=== PATIENT | female | born 1975 | race Caucasian/White ===

== ENCOUNTER → 2023-05-18 16:51 | Outpatient (REF) | payer OTHER, SELFPAY | LOC: HWWDC 16:51 | PROVIDERS: ATTENDING PHYSICIAN Family Medicine | DX: Z12.31 Encounter for screening mammogram for malignant neoplasm of breast (principal) | CPT/HCPCS: 77063; 77067 ==

== ENCOUNTER → 2024-07-05 13:59 | Outpatient (REF) | payer OTHER, SELFPAY | LOC: HWWDC 13:59 | PROVIDERS: ATTENDING PHYSICIAN Advanced Practice Midwife; FAMILY PHYSICIAN Family Medicine | DX: Z12.31 Encounter for screening mammogram for malignant neoplasm of breast (principal) | CPT/HCPCS: 77063; 77067 ==

== ENCOUNTER 2024-07-13 20:44 | Inpatient (IN) | payer OTHER, SELFPAY ==
[2024-07-13] VITALS (10 sets, daily range): BP systolic 90–144; BP diastolic 58–77; BMI 25.5; BMI 26.0
--- NOTE | 2024-07-13 17:27 | ED.GENMED ---
History of Present Illness
General
Chief Complaint: Flank Pain
Source: patient
Time Seen by Provider: 07/13/24 17:16
History of Present Illness
History of Present Illness:
This patient is a 49-year-old female presents emergency department with complaints of left-sided flank pain radiating to the left upper quadrant that began at approximately 4 AM this morning. The pain has been relatively constant since that time,
seems to get better if she tries to walk around, but otherwise she states she feels like she cannot get comfortable. The symptoms are very similar to when she had a kidney stone in the past. She went to an urgent care at approximately noon today,
and was told that she had blood in her urine as well as an elevated white blood cell count. She was referred to the emergency department for further evaluation. Of note, the patient took leftover Zofran and Flomax at home, as well as Tylenol.
While at the urgent care she received a dose of Toradol. She still reports pain here in the emergency department but is no longer nauseous. She denies vomiting, dysuria, urgency, frequency, retention, right-sided pain, chest pain, dyspnea, or
other complaints. When asked about fever she states that she had a temp of 100.7 last night but no fever during the day today
Past History
Past History
ED Past Medical History: Hyperthyroidism (Graves) and Other (Kidney stones, ADHD, hypertension)
ED Past Surgical History: Cholecystectomy, Urological (Lithotripsy) and Other (Thyroidectomy, breast augmentation, 'tummy tuck')
Social History
Tobacco: Non-smoker
Alcohol: Occasional
Drug: None
Living: alone
Employment: Employed
Phy Exam
Physical Exam
Physical Exam:
GENERAL: Alert , in no apparent distress
EYE: pupils equal and reactive
NECK: Supple, no significant adenopathy.
ENT: o/p clr, mmm.
CARDIAC: Regular rate and rhythm .
LUNGS: Clear breath sounds bilaterally, no acute respiratory distress, no wheezes/rales/rhonchi
ABDOMEN: Soft, without focal tenderness, no r/g, no cvat
NEUROLOGICAL: Alert and oriented, no focal neuro deficits
SKIN: Warm and dry, skin intact.
MUSCULOSKELETAL: No edema, well perfused.
PSYCH: Normal and appropriate interaction.
Course
Orders/Labs/Results
Orders:
Orders
07/13/24 Dinner
Regular
07/13/24 17:26
CT Abd/pel Without Iv Or Oral Urgent
Comment:
Reason For Exam: L flank pain, hx stone
0.9% Sodium Chloride 1000 ml [Nss] 1,000 ml IV BOLUS
Morphine Sulfate 4 mg IV NOW STA
07/13/24 17:50
Complete Blood Count/No Diff Urgent
Comprehensive Metabolic Panel Urgent
Blood Culture Q30M
JANAE Source: Blood/Venous
Specimen Description:
07/13/24 17:51
Lactic Acid Q4H
Comment: CANCEL 2nd LACTIC ACID IF 1st LACTIC ACID IS LESS THAN 2
Urinalysis Reflex To Culture Urgent
Date Specimen was Collected: 07/13/24
Time Specimen was Collected: 17:34
Urine Microscopic Reflex Cult Urgent
Urine Culture Urgent
JANAE Source: U
Specimen Description:
Date Specimen was Collected: 07/13/24
Time Specimen was Collected: 17:34
07/13/24 18:39
Cefepime HCl [Maxipime] 2,000 mg IV NOW STA
07/13/24 18:41
0.9% Sodium Chloride 250 ml [Nss] 250 ml IV BOLUS
0.9% Sodium Chloride 500 ml [Nss] 500 ml IV BOLUS
07/13/24 18:58
Blood Culture Q30M
JANAE Source: Blood/Venous
Specimen Description:
07/13/24 19:29
Sterile Water [Sterile Water For Injection] 10 ml .[address] .[facility]
07/13/24 20:30
Admit/Transfer Patient As Directed
Co-Sign Provider:
Level of Care: Inpatient admission
Assign to:: IMU- Intermediate Care
Physician / Group: hospitalist
Diagnosis: sepsis
Reason for Hospitalization: sepsis, pyelonephritis
Expected length of stay greater than two midnights?: Yes
ELOS- Estimated Length of Stay in days: 2
I certify the patient meets the requirements for IP care: Yes
PRN Pain Medication Management As Directed
May give lesser potent ordered pain med per pt: Yes
preference::
Protocol:: Medication orders for pain may be administered in a
manner that supports deferring to patient preference
when the pt is:
- Requesting an ordered lesser potent pain medication.
Least to most potent pain medications are defined
as: acetaminophen < NSAID < tramadol < opioids
(morphine, oxycodone, hydromorphone).
- Requesting a lesser dose of the same medication IF
ORDERED.
- Requesting a less intrusive route of administration
if both routes are prescribed by the provider (PO <
IV).
07/13/24 20:31
Code Status As Directed
Resuscitation Status: Full Code
07/13/24 21:55
Acetaminophen [Tylenol] 650 mg PO Q4HPRN PRN
07/13/24 22:54
Acetaminophen [Tylenol/Feverall] 650 mg RECTAL Q4HPRN PRN
Lactated Ringers [Lr] 1,000 ml IV 125 mls/hr
Linaclotide [Linzess] 72 mcg PO DAILYPRN PRN
Melatonin 3 mg PO HSPRN PRN
Morphine Sulfate 2 mg IV Q6HPRN PRN
Ondansetron Injectable [Zofran] 4 mg IV Q6HPRN PRN
Oxycodone [Roxicodone] 5 mg PO Q4HPRN PRN
cycloSPORINE [Restasis 0.05% Ophthalmic Emulsion] 1 drops BOTH EYES Q12H
07/13/24 22:54
Activity As Directed
Activity Level: With Assistance
Intake/ Output As Directed
Frequency: Per unit guidelines
Vital Signs As Directed
Frequency: Per unit guidelines
Pulse Ox/cont/shift [RESP] Routine
Quantity: 1
Special Instructions: continuous pulse ox
DX Deep Vein Thrombosis Video Routine
07/14/24 00:00
Heparin 5,000 units SC Q8
07/14/24 00:30
Cefepime HCl [Maxipime] 1,000 mg IV Q6H
07/14/24 06:00
Complete Blood Count/No Diff IN AM
Comprehensive Metabolic Panel IN AM
07/14/24 08:00
Bupropion(24Hr)Extended Releas [WELLBUTRIN XL (24 hour extended release)] 300 mg PO DAILY
Levothyroxine [Synthroid] 150 mcg PO DAILY
Metoprolol Xl [Toprol Xl] 50 mg PO DAILY
dextroamphetamine sulfate 10 mg PO BID
Abnormal Lab Results
07/13/24 07/13/24
17:50 17:51
WBC 27.4 H 10^3/uL
(4.8-10.8)
RBC 4.14 L 10^6/uL
(4.20-5.40)
Hct 36.7 L %
(37.0-47.0)
MCH 31.6 H pg
(27.0-31.0)
Sodium 134 L mmol/L
(135-145)
Carbon Dioxide 21 L mmol/L
(22-30)
BUN 18 H mg/dl
(7-17)
Creatinine 1.3 H mg/dL
(0.6-1.0)
Glucose 119 H mg/dl
(70-99)
Urine Ketones 2+ A
(Negative)
Ur Occult Blood Reflex 4+ A
(Negative)
Urine Nitrite (Reflex) Positive A
(Negative)
Leukocyte Esterase Rfl 3+ A
(Negative)
Urine RBC 26-30 A /HPF
(0-2)
Urine WBC (Reflex) >100 A /HPF
(0-5)
Urine Bacteria (Reflex) Moderate A
(Negative)
Urine Albumin (Reflex) 3+ A
(Neg - Trace)
07/13/24 17:50
07/13/24 17:50
Vital Signs
Initial and Last Documented VS:
Initial Vital Signs
Temp Pulse Resp BP Pulse Ox
98.8 F 118 16 106/75 100
07/13/24 16:59 07/13/24 16:59 07/13/24 16:59 07/13/24 16:59 07/13/24 16:59
Last Documented Vital Signs
Temp Pulse Resp BP Pulse Ox
103.2 F H 131 26 106/69 97
07/13/24 21:52 07/13/24 22:30 07/13/24 22:00 07/13/24 22:30 07/13/24 22:30
*Critical Care Note
Total Time (30-74mins, 75-104mins- exclusive of procedures): 32
Update Note
Update Note:
Patient presents to the Emergency Department with __left flank and upper quadrant pain
Number and Complexity of Problems Addressed at the Encounter
� Chronic conditions affecting care:
� Acute Exacerbation and/or Progression of Chronic Illness:
� Differential Diagnosis includes: But not limited to kidney stone, pyelonephritis, muscle strain, diverticulitis, etc. etc. etc.
Amount and/or Complexity of Data to be Reviewed and Analyzed
� I performed an independent evaluation of and my interpretation is:
EKG:
CT:There is a large 2.2 cm nonobstructing stone in the superior pole of the left kidney. There is slight asymmetric stranding along the superior pole the left kidney which is nonspecific however can be seen with infection.
Additionally there is a small focus of gas within the superior pole of the left kidney which raises the possibility of emphysematous pyelonephritis. Recommend correlation with urinalysis.
There are additional nonobstructing stones in the inferior pole the left kidney measuring up to 3 mm. Punctate nonobstructing stone in the lower pole the right kidney.
Prior cholecystectomy.
Mild colonic stool burden.
Xrays:
Laboratory Studies:leukocytosis, renal insuff (cr 1.3), ua suggestive of infx
Other:There is a large 2.2 cm nonobstructing stone in the superior pole of the left kidney. There is slight asymmetric stranding along the superior pole the left kidney which is nonspecific however can be seen with infection.
Additionally there is a small focus of gas within the superior pole of the left kidney which raises the possibility of emphysematous pyelonephritis. Recommend correlation with urinalysis.
There are additional nonobstructing stones in the inferior pole the left kidney measuring up to 3 mm. Punctate nonobstructing stone in the lower pole the right kidney.
Prior cholecystectomy.
Mild colonic stool burden.
� Review of other/old records reveals:
� Clinical information was obtained by an independent historian:
� Prescriptions/Medications Considered but not given:
� Further testing considered but not performed:
Risk of Complications and/or Morbidity or Mortality of Patient Management
� Social determinants of health affecting care:
� Discussion with other providers (PCP, Hospitalists, Consultants, etc):
� Escalation of care including admission/observation vs risk of discharge considered: Patient states that she was given paperwork from her urgent care visit but is unable to access, she left it in the car of her brother who
brought her here. For this reason, we will check labs here.
7:27 PM I reassessed patient multiple times, she remains pain-free, smiling, pleasant. She is aware of her diagnosis and plan of care. CT has just been reported, concern regarding small amount of gas noted raising the possibility of emphysematous
pyelonephritis. She does not have an obstructing stone. Case discussed with Dr. Garzon from urology aware of her clinical presentation i.e. sepsis and I pasted CT report, asking if patient needs further intervention tonight. Patient will be
admitted to the hospitalist, suggest ICU.
response from Dr Garzon: 'No indication for ureteral stent or PCN tube as no obstruction is evident
And as no abscess is described, no role for IRad to place a drain
So medical tx for the sepsis'
ED Attending Note
-
Portions of this chart may have been created with voice recognition software.� Occasional wrong word or��sound alike� substitutions may have occurred due to the inherent limitations of voice recognition software.
Discharge Plan
Departure
Patient Disposition: Admit
Date of Disposition: 07/13/24
Time of Disposition: 19:35
Admit to: ICU
Presentation/result/management discussed w/ accepting MD/DO: Hospitalist
Condition: Fair
Discharge Problem:
Emphysematous pyelonephritis
Interventions
Interventions:
*Risk Screen - Suicide Last Done: 07/13/24 17:01
*General Assessment Last Done: 07/13/24 18:24
*Neglect/Abuse Screening Last Done: 07/13/24 17:01
*ED- Fall Risk Assessment Last Done: 07/13/24 18:24
GY-Apbwzq-Ppzbspticj Assessment Last Done: 07/13/24 18:00
ED-Female Genitourinary Assessment Last Done: 07/13/24 18:00
[2024-07-13] MEDS: MORPHINE SULFATE 4 MG IV (17:51)
[2024-07-13] MEDS: NSS 1000 IV (17:52)
[2024-07-13 18:11] LABS: Hematocrit 36.7 % (37.0-47.0); Hemoglobin 13.1 g/dL (12.0-16.0); Mean Corp Hgb Conc. 35.7 g/dL (33.0-37.0); Mean Corpuscular Hgb 31.6 pg (27.0-31.0); Mean Corpuscular Volume 88.6 fL (81.0-99.0); Mean Platelet Volume 9.5 fL (7.4-10.4); Platelet Count 243 10^3/uL (130-400); Red Blood Cell Count 4.14 10^6/uL (4.20-5.40); Red Cell Dist. Width 12.6 % (11.5-14.5); White Blood Cell Count 27.4 10^3/uL (4.8-10.8)
[2024-07-13 18:11] LABS: Urine Albumin 3+ (Neg - Trace); Urine Bilirubin Negative (Negative); Urine Character Cloudy (Clear); Urine Color Yellow; Urine Glucose Negative (Negative); Urine Ketone 2+ (Negative); Urine Leukocyte 3+ (Negative); Urine Nitrite Positive (Negative); Urine Occult Blood 4+ (Negative); Urine Urobilinogen Negative (Neg - 1+)
[2024-07-13 18:22] LABS: Lactic Acid 1.8 mmol/L (0.7-2.0)
[2024-07-13 18:23] LABS: Urine Bacteria Moderate (Negative); Urine Red Blood Cell 26-30 /HPF (0-2); Urine White Cell >100 /HPF (0-5)
[2024-07-13 18:24] LABS: ALT (SGPT) 20 U/L (0-35); AST (SGOT) 19 U/L (14-36); Albumin 4.1 g/dl (3.5-5.0); Alkaline Phosphatase 90 U/L (38-126); Blood Urea Nitrogen 18 mg/dl (7-17); Calcium 8.9 mg/dl (8.4-10.2); Carbon Dioxide 21 mmol/L (22-30); Chloride 102 mmol/L (98-107); Glucose 119 mg/dl (70-99); Sodium 134 mmol/L (135-145); Total Bilirubin 0.6 mg/dl (0.2-1.3)
[2024-07-13] MEDS: MAXIPIME 2000 MG IV (19:33)
[2024-07-13] MEDS: NSS 500 IV (19:35)
[2024-07-13] MEDS: NSS 250 IV (19:36)
--- NOTE | 2024-07-13 20:20 | HPS.HSE ---
Family Physician
-
Family Physician: Nicolas Caldera
Chief Complaint
-
Flank pain
History of Present Illness
Is a 49-year-old past medical history significant for Graves' disease status post thyroidectomy now on Synthroid, hypertension, nephrolithiasis status post lithotripsy in the past who presents to the emergency department with acute onset of
left-sided flank pain starting 1 night ago.
Patient reports that she woke up at around 4 AM with abrupt onset of flank pain. She had a fever to 100.7. She took some Tylenol. She does report that she did have urinary frequency and urgency but no dysuria. She was seen at urgent care and had
a UA and some blood work and was referred to the emergency department.
Patient has not had any nausea or vomiting or diarrhea. She reports chills and she did take a second dose of Tylenol prior to coming to the emergency department.
She reported that she last had a urinary tract infection several years ago. She has not been on any antibiotics for the last 20 years.
She denies any recent instrumentation.
In the emergency department she was afebrile with a temp of 98.8, blood pressure was 110/60 with a pulse of 110. Respiratory was 24.
He had a white count of 27.4 hemoglobin and platelets are normal. Electrolytes with stable blood creatinine was slightly elevated to 1.3 from a baseline of 1.0. UA was markedly positive with few plus numerous bacteria WBC leukocyte esterase and
nitrites.
CT of the abdomen and pelvis showing large 2.2 cm nonobstructing stone in the superior pole of the left kidney. There is slight asymmetric stranding along the superior pole the left kidney which is nonspecific however can be seen with infection.
Additionally there is a small focus of gas within the superior pole of the left kidney which raises the possibility of emphysematous pyelonephritis. There are additional nonobstructing stones in the inferior pole the left kidney measuring up to 3
mm. Punctate nonobstructing stone in the lower pole the right kidney.
Medical History
Past Medical History
Past Medical History: Reports HTN, Hypothyroidism and Other (Graves' disease status post thyroidectomy)
Past Surgical History: Reports Cholecystectomy and Other (Breast augmentation, abdominal liposuction)
Social History
Tobacco: Non-smoker
Alcohol: Occasional
Drug: None
Personal:
Living: With Family
Family History
Family History: Not pertinent
Allergies / Home Medications
Allergies reflects when Allergies were last updated in [employer].
Home Medications with original date entered in [facility]
Allergy/Medication List:
Allergies
Allergy/AdvReac Type Severity Reaction Status Date / Time
No Known Allergies Allergy Verified 09/16/20 11:02
Home Medications
levothyroxine 150 mcg tablet 150 mcg PO DAILY 09/09/17
cholecalciferol (vitamin D3) 25 mcg (1,000 unit) tablet 1,000 units PO HS 01/08/20
melatonin 3 mg tablet 3 mg PO HSPRN PRN sleep 01/08/20
bupropion HCl 150 mg 24 hr tablet, extended release 300 mg PO DAILY 07/13/24
cyclosporine 0.05 % eye drops in a dropperette 1 drp BOTH EYES Q12H 07/13/24
dextroamphetamine sulfate 10 mg capsule,extended release 10 mg PO BID 07/13/24
etonogestrel 0.12 mg-ethinyl estradiol 0.015 mg/24 hr vaginal ring (EluRyng) 1 vag ring vaginal Q4W 07/13/24
hydrochlorothiazide 12.5 mg tablet 12.5 mg PO DAILY 07/13/24
linaclotide 72 mcg capsule (Linzess) 72 mcg PO DAILYPRN PRN ibs 07/13/24
metoprolol succinate 50 mg tablet,extended release 24 hr 50 mg PO DAILY 07/13/24
ondansetron 8 mg disintegrating tablet 8 mg PO DAILYPRN PRN nausea 07/13/24
zolpidem 10 mg tablet 10 mg PO HSPRN PRN sleep 07/13/24
Review of Systems
-
History Source: Patient
Constitutional: Reports Fever
EENT: Reports No Symptoms
Respiratory: Reports No Symptoms
Cardiac: Reports No Symptoms
Abdomen/GI: Reports No Symptoms
: Reports Flank Pain
Musculoskeletal: Reports No Symptoms
Skin: Reports No Symptoms
Neurological: Reports No Symptoms
Endocrine: Reports No Symptoms
Hematologic/Lymphatic: Reports No Symptoms
Psych: Reports No Symptoms
Physical Exam
Vital Signs
Vital Signs
Temp Pulse Resp BP Pulse Ox
98.8 F 107 24 113/60 95
07/13/24 16:59 07/13/24 19:30 07/13/24 19:30 07/13/24 19:00 07/13/24 19:05
Physical Exam
General: Well Developed, Well Nourished, Comfortable and Conversant
HEENT: NormoCephalic, Anicteric, Moist mucous membranes and Atraumatic
Respiratory: Clear
Cardiac: S1/S2 and Tachycardia
Breast: Deferred by me
GI: Soft, Non Tender, Non Distended and Normal Bowel Sounds
Rectal: Deferred by Provider
Genito-urinary: Deferred by me
Musculoskeletal: No Clubbing, No Cyanosis and No Edema
Skin: Warm
Neuro: AO x 3 and Nonfocal/grossly intact
Hematologic/Lymphatic: No Lymphadenopathy
Psych: Calm
Laboratory Results
-
07/13/24 17:50
07/13/24 17:50
Laboratory Results
Lactic Acid 1.8 mmol/L (0.7-2.0) 07/13/24 17:51
Total Bilirubin 0.6 mg/dl (0.2-1.3) 07/13/24 17:50
AST 19 U/L (14-36) 07/13/24 17:50
ALT 20 U/L (0-35) 07/13/24 17:50
Alkaline Phosphatase 90 U/L (38-126) 07/13/24 17:50
Data Reviewed
-
CT Scan: Report Reviewed by me
Lab Data: Labs Reviewed by me
Old Records: Reviewed
Impression/Plan
-
IMPRESSION:
51-year-old female with past medical history of hypothyroid, nephrolithiasis, presents to the emergency department with left-sided flank pain and found to have complicated pyelonephritis. Patient has left-sided nonobstructing large 2 cm stone.
There is no abscess. UA is markedly positive. He has severe peripheral leukocytosis and has fevers at home. She is tachycardic here. Meets sepsis criteria. The CT scan of the abdomen pelvis in addition shows a small focus of gas within the
superior pole of the left kidney which raises the possibility of emphysematous pyelonephritis. Urology was contacted. There is no obstruction so no acute urological intervention recommended.
PLAN:
1. Pyelonephritis - Sepsis without shock. H/O kidney stones. Currently non-obstructing kidney stones in the left kidney. No abscess. ? small focus of gas in the superior pole of the left kidney
- admit to IMU for sepsis
- blood and urine cultures sent
- no recent abx, however given severity of presentation and presence of stone will cover for proteus with Cefepime for now pending cultures
- pain control and antiemetics
- serial examinations
- continue IV LR
2. Hypothyroid - stable
- continue synthroid 150 mcg
3. Hypertension
- will hold hctz for now
- continue metoprolol with hold parameters if stable in am
DVT PPX - heparin sq for now
Code status - Full Code
[2024-07-13] MEDS: TYLENOL 650 MG PO (21:58)
[2024-07-13] MEDS: LR 1000 IV (23:16)
[2024-07-13] MEDS: HEPARIN 5000 UNITS SC (23:47)
[2024-07-13] MEDS: ROXICODONE 5 MG PO (23:48)
[2024-07-13] MEDS: RESTASIS 0.05% OPHTHALMIC EMULSION 1 DROPS BOTH EYES (23:52)
[2024-07-14] VITALS (21 sets, daily range): BP systolic 82–104; BP diastolic 53–78
--- NOTE | 2024-07-14 01:39 | PTCARENOTE ---
Rec'd pt from ED. Pt able to ambulate from stretcher to bed with minimal assistance. IVF hanging per MD orders. Pt c/o pain in L flank. Oriented to room. Call issa within reach.
[2024-07-14] MEDS: STERILE WATER FOR INJECTION 10 ML IV ×2 (01:54→07:29)
[2024-07-14] MEDS: MAXIPIME 1000 MG IV ×2 (01:55→07:29)
[2024-07-14] MEDS: LR 500 IV (02:36)
--- NOTE | 2024-07-14 04:16 | PTCARENOTE ---
Pt hypotensive, asymptomatic. [employer] notified via TT, 500ml bolus given per JUN.
[2024-07-14] MEDS: SYNTHROID 150 MCG PO (05:22)
[2024-07-14] MEDS: ROXICODONE 5 MG PO ×3 (07:26→20:10)
[2024-07-14] MEDS: RESTASIS 0.05% OPHTHALMIC EMULSION 1 DROPS BOTH EYES ×2 (07:28→20:10)
[2024-07-14] MEDS: WELLBUTRIN XL (24 hour extended release) 300 MG PO (07:28)
[2024-07-14] MEDS: HEPARIN 5000 UNITS SC ×2 (07:35→20:10)
[2024-07-14] MEDS: LR 1000 IV ×3 (07:39→23:11)
--- NOTE | 2024-07-14 09:36 | CM ---
CM met with pt bedside
Pt resides alone in a 2SH with 2 PRESTON, full flight to 2nd floor
Pt is indep with her ADLs, denies use of DMEs
Denies financial insecurities
PCP- Nicolas Caldera
Rx- Franklin Barba
Discharge Disposition- anticipate, home no needs
--- NOTE | 2024-07-14 09:36 | W.PN.HOSP.TC ---
Today's Communication/Plan
-
await cultures
cont IVF and ABX
consider urology consult in AM
transfer out of IMU
Assessment / Plan
Assessment / Plan
pt is a 49 year old female
sepsis (POA) without shock--due to left kidney Pyelonephritis-- H/O kidney stones--non-obstructing kidney stones in the left kidney--No abscess--small focus of gas in the superior pole of the left kidney--cont cefepime--follow cultures--consider
urology consult in AM
Hypothyroid- continue synthroid 150 mcg
Essential Hypertension--hold HCTZ--continue metoprolol with hold parameters
DVT Proph -- SC heparin
Code status - Full Code
ok to transfer out of IMU
Anticipated Discharge: 24 - 48 hours
Subjective/Interval History
-
Date of Service: July 14, 2024
pt doing OK
Objective Data
-
Labs:
Laboratory Results
07/14/24
06:00
WBC Pending
Hgb Pending
Hct Pending
Plt Count Pending
Sodium Pending
Potassium Pending
Chloride Pending
Carbon Dioxide Pending
BUN Pending
Creatinine Pending
Glucose Pending
Calcium Pending
Total Bilirubin Pending
AST Pending
ALT Pending
Alkaline Phosphatase Pending
Vital Signs:
max temp for 24 hours
07/13/24
21:52
Temp 103.2 F H
Vital Signs
Temp Pulse Resp BP Pulse Ox
99.1 F 104 22 94/60 98
07/14/24 03:00 07/14/24 06:00 07/14/24 06:00 07/14/24 06:00 07/14/24 06:00
Review of Systems
-
All other systems: Reviewed and negative
Physical Exam
-
General: Well Developed, Well Nourished and No Apparent Distress
HEENT: Normocephalic and Atraumatic
Respiratory: Clear to Auscultation; Negative Wheezes or Rhonchi
Cardiac: Regular Rhythm and S1/S2; Negative Murmur
GI: Soft, Nontender, Nondistended and Normal Bowel Sounds
Genito-urinary: No Costovertebral Tender
Musculoskeletal: No Clubbing, No Cyanosis and No Edema
Skin: Warm
Neuro: Awake
--- NOTE | 2024-07-14 10:44 | CON.ID ---
Consultation
-
Date/Time Consultation Requested: 07/13/24 23:04
Date/Time Consultation Performed: 07/14/24 10:44
Requesting Provider: Dr Kearney
Performing Provider: Dr Mao
Reason for Consultation: sepsis, pyelonephritis
Chief Complaint / Past History
Chief Complaint
Flank pain
History of Present Illness
Ms Van 49 year old female history notable for Graves disease and previous renal stone, who presented here yesterday for acute onset of L flank pain 07/12 which awoke her from sleep, also fever 100.7 and chills and urinary frequency. She was
seen at urgent care who referred her to our ER. No nausea, vomiting or diarrhea.
In the emergency department she was afebrile with a temp of 98.8, blood pressure was 110/60 with a pulse of 110. Respiratory rate was 24. WBC initially 27, hgb 13, plt 243, cr 1.3, lactic acid 1.8, lfts wnl, UA >100 wbc/hpf and moderate bacteria,
'07/13 CT a/p without contrast: 2.2 cm nonobstructing stone in the superior pole of the left kidney. There is slight asymmetric stranding along the superior pole the left kidney which is nonspecific however can be seen with infection. Additionally
there is a small focus of gas within the superior pole of the left kidney which raises the possibility of emphysematous pyelonephritis' vs prior instrumentation such as her L RGP done 2019.
Past History
Additional Past Medical History:
HTN, Hypothyroidism and Other (Graves' disease status post thyroidectomy)
Additional Past Surgical History:
Cholecystectomy and Other (Breast augmentation, abdominal liposuction)
Allergy History:
No Known Allergies Allergy (Verified 09/16/20 11:02)
Medications Reviewed: Yes
Social History
Tobacco: Non-Smoker
Alcohol: Occasional
Drug: None
Family History
Family History: Not Pertinent
Review of Systems
Review of Systems
General: Fever and Chills
All systems: All other systems were reviewed and were negative
Vital Signs
Temp Pulse Resp BP Pulse Ox
99.1 F 114 21 104/60 97
07/14/24 07:45 07/14/24 09:00 07/14/24 09:00 07/14/24 09:00 07/14/24 09:00
Physical Exam
Physical Exam
Constitutional: No Acute Distress
Cardiovascular: Regular Rate and S1/S2; Negative Murmur or Rub
Pulmonary: Clear and Symmetric; Negative Wheezes, Rales or Rhonchi
Gastrointestinal: Soft, Non Tender, Non Distended and Normal Bowel Sounds
Skin: Warm and Dry; Negative Rash or Jaundice
Lab / Diagnostic Study Results
Lactic Acid Cancelled 07/13/24 21:30
Ur Squamous Epith Cells 3-5 /LPF (Few) 07/13/24 17:51
Microbiology Results
Micro:
07/13/24 18:58 Blood Culture - Pending
Blood/Venous
07/13/24 17:51 Urine Culture - Pending
Urine
07/13/24 17:50 Blood Culture - Pending
Blood/Venous
Assessment / Plan
Possible Pyelonephritis
Graves disease
- suspect small focus of gas is residual from prior RGP 2019
- no obstruction or more recent instrumentation per discussion with patient
- UA with gross pyuria
- urine culture in progress
- blood cultures x2 in progress
- start zosyn stop cefepime
[2024-07-14] MEDS: ZOSYN 50 IV ×3 (11:26→23:11)
[2024-07-14] MEDS: TYLENOL 650 MG PO ×2 (11:29→20:09)
--- NOTE | 2024-07-14 15:00 | PTCARENOTE ---
AM labs were unable to be obtained. 2 nightshift RNs attempted x2. PCT and dayshift RNs attempted as well. Phlebotomy called this AM to attempt blood draw, however they never showed to floor.
--- NOTE | 2024-07-14 17:41 | CONS.URO ---
Consultation
-
Date/Time Consultation Performed: 07/14/24 1730
Performing Provider: Duran
Reason for Consultation: Left Renal Stone and Pyelonephritis
Medical History
History of Present Illness
Dr Acuña's [excerpted] note: '49-year-old female presents emergency department with complaints of left-sided flank pain radiating to the left upper quadrant that began at approximately 4 AM this morning. The pain has been relatively constant since
that time, seems to get better if she tries to walk around, but otherwise she states she feels like she cannot get comfortable. The symptoms are very similar to when she had a kidney stone in the past. She went to an urgent care at approximately
noon today, and was told that she had blood in her urine as well as an elevated white blood cell count. She was referred to the emergency department for further evaluation. Of note, the patient took leftover Zofran and Flomax at home, as well as
Tylenol. While at the urgent care she received a dose of Toradol. She still reports pain here in the emergency department but is no longer nauseous. She denies vomiting, dysuria, urgency, frequency, retention, right-sided pain, chest pain,
dyspnea, or other complaints. When asked about fever she states that she had a temp of 100.7 last night but no fever during the day today.'
history of urolithiasis dating back to 2016, at which time CT stone protocol from 02/2017 demonstrated a 4 mm left UPJ calculus with hydronephrosis. She underwent successful left ESWL with Dr. Nair in 2016 for treatment of the stone. Renal
ultrasound from 06/2017
demonstrated no hydronephrosis or residual calculi bilaterally. After experiencing intermittent left renal colic, CT in 11/2019 demonstrated moderate left-sided hydronephrosis with a normal-appearing ureter. Dr Sherman subsequently performed
ureteroscopy, dilation of left renal stricture and stenting.
Past Medical History
Past Medical History: Other (Hyperthyroidism (Graves) and Kidney stones, ADHD, hypertension, Left Ureteral Stricture)
Past Surgical History: Other (Cholecystectomy, Left Ureteroscopy with Laser Lithotripsy in 2017, Left Ureteroscopy with Dilation of Ureteral stricture and Stening in 2019; Thyroidectomy, breast augmentation, 'tummy tuck')
Social History
Tobacco: Non-smoker
Allergies/Home Medications
Allergies
Allergy/AdvReac Type Severity Reaction Status Date / Time
No Known Allergies Allergy Verified 09/16/20 11:02
Home Medications
�Medication �Instructions �Recorded �Confirmed �Type
levothyroxine 150 mcg tablet 150 mcg PO DAILY 09/09/17 07/13/24 History
cholecalciferol (vitamin D3) 25 1,000 units PO HS 01/08/20 07/13/24 History
mcg (1,000 unit) tablet
melatonin 3 mg tablet 3 mg PO HSPRN PRN sleep 01/08/20 07/13/24 History
bupropion HCl 150 mg 24 hr tablet, 300 mg PO DAILY 07/13/24 07/13/24 History
extended release
cyclosporine 0.05 % eye drops in a 1 drp BOTH EYES Q12H 07/13/24 07/13/24 History
dropperette
dextroamphetamine sulfate 10 mg 10 mg PO BID 07/13/24 07/13/24 History
capsule,extended release
etonogestrel 0.12 mg-ethinyl 1 vag ring vaginal Q4W 07/13/24 07/13/24 History
estradiol 0.015 mg/24 hr vaginal
ring (EluRyng)
hydrochlorothiazide 12.5 mg tablet 12.5 mg PO DAILY 07/13/24 07/13/24 History
linaclotide 72 mcg capsule 72 mcg PO DAILYPRN PRN ibs 07/13/24 07/13/24 History
(Linzess)
metoprolol succinate 50 mg 50 mg PO DAILY 07/13/24 07/13/24 History
tablet,extended release 24 hr
ondansetron 8 mg disintegrating 8 mg PO DAILYPRN PRN nausea 07/13/24 07/13/24 History
tablet
zolpidem 10 mg tablet 10 mg PO HSPRN PRN sleep 07/13/24 07/13/24 History
Physical Exam
Vital Signs
Vital Signs
Temp Pulse Resp BP Pulse Ox
103.1 F H 114 23 86/64 97
07/14/24 11:31 07/14/24 13:00 07/14/24 13:00 07/14/24 13:00 07/14/24 13:27
Lab / Testing Results
Laboratory Results
07/14/24 06:00
07/14/24 06:00
Physical Exam
adult female supine in bed
General: Well Developed, Well Nourished, No Apparent Distress and Comfortable
Respiratory: Non Labored Respirations
Genito-urinary: No Costovertebral Tend (left)
Skin: Warm
Neuro: Awake, Alert and Oriented
Psych: Calm and Intact Judgement
Assessment / Plan
-
Left Renal Stone: large, upper pole, non-obstructing
h/o left ureteral stricture
Left Pyelonephritis - Urosepsis
Rec: medical tx pyelonephritis/urosepsis
as stone in non-obstructing, emergent surgical intervention is not indicated
after clearance/diminishment of infection, then left ureteroscopy/laser lithotripsy/stenting will be pursued
[2024-07-14] MEDS: COLACE 100 MG PO (22:08)
[2024-07-15 00:04] VITALS: BP 110/66
--- NOTE | 2024-07-15 00:37 | PTCARENOTE ---
Pt AAOx3, pleasant. IVF cont. IV abx Q6H. Pt experiencing 5/10 pain in the left middle back/flank area. Administered PRN Oxycodone as well as PRN Tylenol. Pt a-febrile. Pt on RA. Pt ambulating in the hallway and bathroom. Pt states she is 'scared of
getting backed up from pain medication'. RACK PUSHER made aware and ordered Colace. Pt rings call issa appropriately and able to make needs known. Call issa within reach.
[2024-07-15] MEDS: SYNTHROID 150 MCG PO (05:23)
[2024-07-15] MEDS: ROXICODONE 5 MG PO ×2 (05:23→14:04)
[2024-07-15] MEDS: ZOSYN 50 IV ×4 (05:23→23:59)
[2024-07-15] MEDS: TYLENOL 650 MG PO ×2 (05:23→19:48)
[2024-07-15 05:42] LABS: Hematocrit 29.4 % (37.0-47.0); Hemoglobin 10.2 g/dL (12.0-16.0); Mean Corp Hgb Conc. 34.7 g/dL (33.0-37.0); Mean Corpuscular Hgb 31.3 pg (27.0-31.0); Mean Corpuscular Volume 90.2 fL (81.0-99.0); Mean Platelet Volume 9.3 fL (7.4-10.4); Platelet Count 189 10^3/uL (130-400); Red Blood Cell Count 3.26 10^6/uL (4.20-5.40); Red Cell Dist. Width 12.8 % (11.5-14.5); White Blood Cell Count 20.7 10^3/uL (4.8-10.8)
[2024-07-15 06:00] LABS: ALT (SGPT) 21 U/L (0-35); AST (SGOT) 24 U/L (14-36); Alkaline Phosphatase 95 U/L (38-126); Blood Urea Nitrogen 14 mg/dl (7-17); Calcium 8.4 mg/dl (8.4-10.2); Carbon Dioxide 20 mmol/L (22-30); Chloride 110 mmol/L (98-107); Estimated Creatinine Clearance 68 ml/min; Glucose 96 mg/dl (70-99); Magnesium 1.7 mg/dl (1.6-2.3); Potassium 3.5 mmol/L (3.5-5.1); Sodium 137 mmol/L (135-145); Total Bilirubin 0.4 mg/dl (0.2-1.3); eGFR > 60.00
[2024-07-15 06:16] LABS: Albumin 2.5 g/dl (3.5-5.0)
[2024-07-15 07:57] VITALS: BP 100/57
[2024-07-15] MEDS: COLACE 100 MG PO ×2 (08:24→19:44)
[2024-07-15] MEDS: WELLBUTRIN XL (24 hour extended release) 300 MG PO (08:24)
[2024-07-15] MEDS: HEPARIN 5000 UNITS SC ×2 (08:25→19:44)
[2024-07-15] MEDS: RESTASIS 0.05% OPHTHALMIC EMULSION 1 DROPS BOTH EYES ×2 (08:25→19:45)
--- NOTE | 2024-07-15 10:24 | W.PN.ID1 ---
Date of Service
Date of Service: July 15, 2024
Today's Communication
awaiting urine culture
c/w zosyn
Assessment / Plan
Possible Pyelonephritis
Graves disease
- suspect small focus of gas is residual from prior RGP 2019
- no obstruction or more recent instrumentation per discussion with patient
- for eventual lithotripsy, stone nonobstructive
- UA with gross pyuria
- urine culture in progress
- blood cultures x2 in progress
- c/w zosyn
Chief Complaint
-: Other (pyelonephritis)
Subjective / Review of Systems
fevers ongoing
bp stable
report flank and groin pain resolved
Vital Signs / Physical Exam
Vital Signs
Vital Signs
Temp Pulse Resp BP Pulse Ox
98.7 F 96 18 100/57 97
07/15/24 07:57 07/15/24 07:57 07/15/24 07:57 07/15/24 07:57 07/15/24 07:57
Physical Exam
Constitutional: No Acute Distress
Cardiovascular: Regular Rate and S1/S2; Negative Murmur or Rub
Pulmonary: Clear and Symmetric; Negative Wheezes or Rales
Gastrointestinal: Soft, Non Tender, Non Distended and Normal Bowel Sounds
Genito-Urinary: Negative Suprapubic Tenderness
Skin: Warm and Dry; Negative Rash or Jaundice
Objective Data
Lab Data
Lab Results
07/15/24 05:21
07/15/24 05:21
Estimated Creat Clear 68 ml/min 07/15/24 05:21
Lactic Acid Cancelled 07/13/24 21:30
Total Bilirubin 0.4 mg/dl (0.2-1.3) 07/15/24 05:21
AST 24 U/L (14-36) 07/15/24 05:21
ALT 21 U/L (0-35) 07/15/24 05:21
Alkaline Phosphatase 95 U/L (38-126) 07/15/24 05:21
Most recent labs reviewed.
Micro Results:
07/13/24 18:58 Blood Culture - Preliminary
Blood/Venous No Growth in 24 hours- Final report to follow
07/13/24 17:50 Blood Culture - Preliminary
Blood/Venous No Growth in 24 hours- Final report to follow
07/13/24 17:51 Urine Culture - Pending
Urine
[2024-07-15] MEDS: LR IV (11:16)
--- NOTE | 2024-07-15 12:50 | W.PN.HOSP.TC ---
Addendum entered and electronically signed by Jordyn Al MD 07/15/24 13:34:
Correction to below, antibiotic changed from cefepime to Zosyn per ID
Per Uro, if patient remains as inpatient Monday, would proceed with left ureteroscopy/laser lithotripsy/stenting.
Addendum entered and electronically signed by Jordyn Al MD 07/15/24 13:32:
I saw and evaluated the patient. I reviewed the resident�s note and agree with findings and plan as documented in the resident�s note.
A/P:
# sepsis POA 2/2 left kidney Pyelonephritis
# H/O kidney stones
non-obstructing kidney stones in the left kidney. No abscess.
No urgent urologic intervention needed per urology.
follow urine culture
Cont cefepime
# Hypothyroidism
continue Synthroid 150 mcg
# Essential Hypertension
hold HCTZ
continue metoprolol with hold parameters
BP currently soft
Original Note:
Today's Communication/Plan
-
Downgrade to med/surg
Continue IV Zosyn.
No indication of surgical intervention per urology
Await urine culture
Assessment / Plan
Assessment / Plan
Impression
Sepsis due to left renal pyelonephritis
Hypothyroidism
Essential hypertension
Plan
Sepsis due to left renal pyelonephritis
Prior history of left renal nonobstructing stones x4
Afebrile with improvement in WBC
Continue Zosyn. Await urine culture. ID following
Appreciate urology input--- continue IV antibiotics, no surgical intervention indicated
Downgrade to med/surg
Monitor temp curve and WBC
Pain control
Hypothyroid
continue synthroid 150 mcg
Essential Hypertension
hold HCTZ
continue metoprolol with hold parameters
DVT Proph -- SC heparin
Code status - Full Code
Anticipated Discharge: > 48 hours
Subjective/Interval History
-
Date of Service: July 15, 2024
No overnight events
Objective Data
-
Labs:
Laboratory Results
07/15/24
05:21
WBC 20.7 H
Hgb 10.2 L D
Hct 29.4 L
Plt Count 189 D
Sodium 137
Potassium 3.5
Chloride 110 H
Carbon Dioxide 20 L
BUN 14
Creatinine 1.0
Glucose 96
Calcium 8.4
Total Bilirubin 0.4
AST 24
ALT 21
Alkaline Phosphatase 95
Vital Signs:
Vital Signs
Temp Pulse Resp BP Pulse Ox
98.7 F 96 18 100/57 97
07/15/24 07:57 07/15/24 07:57 07/15/24 07:57 07/15/24 07:57 07/15/24 07:57
I&O
07/14/24 07/15/24 07/16/24
06:59 06:59 06:59
Intake Total 3370 / 3370 675 / 675
Output Total 550 / 550
Balance 3370 / 3370 125 / 125
Review of Systems
-
All other systems: Reviewed and negative
Physical Exam
-
General: No Apparent Distress and Comfortable
HEENT: Normocephalic and Atraumatic
Respiratory: Clear to Auscultation
Cardiac: Regular Rhythm and S1/S2
GI: Soft, Nondistended, Normal Bowel Sounds and Tender (Very mild tenderness on right lower quadrant possibly due to bloating)
Genito-urinary: Negative Costovertebral Angle Tend
Musculoskeletal: No Edema
Neuro: AO x 3
Psych: Calm
Data Reviewed
-
CT Scan: Image personally visualized and interpreted, Report Reviewed by me and Discussed with Physician
Labs: Labs Reviewed by me and Discussed with Physician
--- NOTE | 2024-07-15 13:19 | W.PN.URO.CBU ---
Today's Communication / Plan
-
If patient remains as inpatient Monday, would proceed with left ureteroscopy/laser lithotripsy/stenting.
If she is discharged Monday, then she would return on an out-patient basis.
Plan d/w pt and her RN
Assessment / Plan
-
Left Renal Stone: large, upper pole, non-obstructing
h/o left ureteral stricture
Left Pyelonephritis - Urosepsis
Clinically improving
Diagnosis
-
Date of Service: July 15, 2024
-
Patient Diagnosis:
Left Renal Stone: large, upper pole, non-obstructing
h/o left ureteral stricture
Left Pyelonephritis - Urosepsis
Subjective
-
'I feel much better.'
Objective
-
Vital Signs
Temp Pulse Resp BP Pulse Ox
98.7 F 96 18 100/57 97
07/15/24 07:57 07/15/24 07:57 07/15/24 07:57 07/15/24 07:57 07/15/24 07:57
Intake and Output
07/14/24 07/15/24 07/16/24
06:59 06:59 06:59
Intake Total 3370 / 3370 675 / 675
Output Total 550 / 550
Balance 3370 / 3370 125 / 125
Intake:
Oral fluids 720 / 720 300 / 300
IV fluids (Total) 2500 / 2500 375 / 375
IV piggybacks 150 / 150
Output:
Urine, Voided 550 / 550
Other:
Number of approximated MODERATE 1 2
amounts of urine
Laboratory Results
07/15/24 05:21
07/15/24 05:21
Urine: GN bacilli
Physical Exam
-
General -appears much healthier today
Care Review
Data Reviewed
Discussed with: Nursing
[2024-07-15] MEDS: MAGNESIUM SULFATE 50 IV (13:23)
[2024-07-15] MEDS: DULCOLAX 5 MG PO (13:23)
[2024-07-15] MEDS: KCL ELIXIR 40 MEQ PO (15:38)
[2024-07-15 15:56] VITALS: BP 126/74
--- NOTE | 2024-07-15 17:29 | PTCARENOTE ---
Patient complaining of left sided flank pain moderate, relieved with Oxycodone 5mg dose. Patient having no issues urinating, no nausea or vomiting. Patient is ambulating in room. Good appetite.
--- NOTE | 2024-07-15 23:10 | PTCARENOTE ---
Patient responding to PRN Oxycodone dose given see JUN. Pt had oral temp of 99.3 and states she 'feels feverish'. PRN Tylenol administered. Pt denies any difficulty or pain with urination. Pt ambulating in the room. Pt has call issa within reach.
[2024-07-16] MEDS: ROXICODONE 5 MG PO ×3 (04:36→21:44)
[2024-07-16] MEDS: TYLENOL 650 MG PO ×2 (04:37→18:13)
[2024-07-16] MEDS: SYNTHROID 150 MCG PO (05:44)
[2024-07-16] MEDS: ZOSYN 50 IV (05:45)
[2024-07-16 05:54] LABS: % Basophils 0.7 % (0-2); % Eosinophils 2.3 % (0-6); % Immature Granulocytes 1.2 % (0-0.5); % Lymphocytes 10.5 % (20.5-51.1); % Monocytes 8.4 % (1.7-9.3); % Neutrophils 76.9 % (42.2-75.2); Absolute Basophils 0.1 10^3/uL (0-0.2); Absolute Eosinophils 0.4 10^3/uL (0-0.7); Absolute Immature Granulocytes 0.2 10^3/uL (0-0.05); Absolute Lymphocytes 1.6 10^3/uL (1.2-3.4); Absolute Monocytes 1.3 10^3/uL (0.1-0.6); Absolute Neutrophils 11.7 10^3/uL (1.4-6.5); Hematocrit 28.5 % (37.0-47.0); Hemoglobin 9.8 g/dL (12.0-16.0); Mean Corp Hgb Conc. 34.4 g/dL (33.0-37.0); Mean Corpuscular Hgb 30.7 pg (27.0-31.0); Mean Corpuscular Volume 89.3 fL (81.0-99.0); Mean Platelet Volume 9.3 fL (7.4-10.4); Nucleated Red Blood Cells % 0 %; Platelet Count 204 10^3/uL (130-400); Red Blood Cell Count 3.19 10^6/uL (4.20-5.40); Red Cell Dist. Width 13.2 % (11.5-14.5); White Blood Cell Count 15.2 10^3/uL (4.8-10.8)
--- NOTE | 2024-07-16 06:05 | PTCARENOTE ---
Pt experiencing 6/10 flank/back pain. PRN Oxycodone administered.
[2024-07-16 06:18] LABS: Blood Urea Nitrogen 8 mg/dl (7-17); Calcium 7.9 mg/dl (8.4-10.2); Carbon Dioxide 20 mmol/L (22-30); Chloride 110 mmol/L (98-107); Estimated Creatinine Clearance 85 ml/min; Glucose 96 mg/dl (70-99); Magnesium 1.6 mg/dl (1.6-2.3); Potassium 3.8 mmol/L (3.5-5.1); Sodium 138 mmol/L (135-145); eGFR > 60.00
[2024-07-16 07:45] VITALS: BP 143/74
--- NOTE | 2024-07-16 08:56 | W.PN.HOSP.TC ---
Addendum entered and electronically signed by Jordyn Al MD 07/16/24 12:19:
I saw and evaluated the patient. I reviewed the resident�s note and agree with findings and plan as documented in the resident�s note.
A/P:
# sepsis POA 2/2 left kidney Pyelonephritis
# H/O kidney stones
non-obstructing kidney stones in the left kidney. No abscess.
Urine culture growing pansensitive E coli
cefepime -> Zosyn -> cefazolin
Plans for OR tomorrow with left ureteroscopy/laser lithotripsy/stenting.
Post procedure can switch to keflex 500 mg PO QID for a 10 day total course
Appreciate ID and Uro input
# Hypothyroidism
continue Synthroid 150 mcg
# Essential Hypertension
hold HCTZ
continue metoprolol with hold parameters
BP improved
Original Note:
Today's Communication/Plan
-
Scheduled for lithotripsy tomorrow in the hospital.
[place] sensitive e coli recovered on urine culture
Discharge plan after the procedure.
Assessment / Plan
Assessment / Plan
Impression
Sepsis due to left renal pyelonephritis
Hypothyroidism
Essential hypertension
Plan
Sepsis due to left renal pyelonephritis
Prior history of left renal nonobstructing stones x4
Afebrile with improvement in WBC
Continue Zosyn. ID following
Urine culture positive for gram-negative bacilli, await sensitivities
Appreciate urology input--- continue IV antibiotics, no surgical intervention indicated
Downgrade to med/surg
Monitor temp curve and WBC
Pain control
Bowel regimen
Patient is scheduled for lithotripsy procedure tomorrow.
Discharge plan after the procedure
Hypothyroid
continue synthroid 150 mcg
Essential Hypertension
hold HCTZ
continue metoprolol with hold parameters
DVT Proph -- SC heparin
Code status - Full Code
Anticipated Discharge: 24 - 48 hours
Subjective/Interval History
-
Date of Service: July 16, 2024
No overnight events
Objective Data
-
Labs:
Laboratory Results
07/16/24
05:39
WBC 15.2 H
Hgb 9.8 L
Hct 28.5 L
Plt Count 204
Sodium 138
Potassium 3.8
Chloride 110 H
Carbon Dioxide 20 L
BUN 8
Creatinine 0.8
Glucose 96
Calcium 7.9 L
Vital Signs:
Vital Signs
Temp Pulse Resp BP Pulse Ox
98.6 F 88 16 126/74 97
07/15/24 22:35 07/15/24 15:56 07/15/24 15:56 07/15/24 15:56 07/15/24 21:48
I&O
07/15/24 07/16/24 07/17/24
06:59 06:59 06:59
Intake Total 3370 / 3370 915 / 915
Output Total 550 / 550
Balance 3370 / 3370 365 / 365
Review of Systems
-
All other systems: Reviewed and negative
Physical Exam
-
General: No Apparent Distress and Comfortable
HEENT: Normocephalic and Atraumatic
Respiratory: Clear to Auscultation
Cardiac: Regular Rhythm and S1/S2
GI: Nontender and Nondistended
Genito-urinary: Costovertebral Angle Tend
Skin: Warm and Dry
Neuro: AO x 3
Psych: Calm
Data Reviewed
-
Labs: Labs Reviewed by me and Discussed with Physician
[2024-07-16] MEDS: WELLBUTRIN XL (24 hour extended release) 300 MG PO (09:10)
[2024-07-16] MEDS: COLACE 100 MG PO (09:11)
[2024-07-16] MEDS: HEPARIN SC ×4 (09:11→19:46)
[2024-07-16] MEDS: RESTASIS 0.05% OPHTHALMIC EMULSION 1 DROPS BOTH EYES ×2 (09:11→19:45)
--- NOTE | 2024-07-16 09:48 | W.PN.ID1 ---
Date of Service
Date of Service: July 16, 2024
Today's Communication
- stop zosyn start cefazolin given plans for the OR tomorrow, post procedure she can switch to keflex 500 mg PO QID for a 10 day total course
Assessment / Plan
Possible Pyelonephritis
Graves disease
- suspect small focus of gas is residual from prior RGP 2019
- no obstruction or more recent instrumentation per discussion with patient
- for eventual lithotripsy, stone nonobstructive
- UA with gross pyuria
- urine culture in progress
- blood cultures x2 in progress
- stop zosyn start cefazolin given plans for the OR tomorrow, post procedure she can switch to keflex 500 mg PO QID for a 10 day total course
Chief Complaint
-: Other (pyelonephritis)
Subjective / Review of Systems
fever resolved
bp stable
still with some lower back pain
no other complaints
Vital Signs / Physical Exam
Vital Signs
Vital Signs
Temp Pulse Resp BP Pulse Ox
98.2 F 82 16 143/74 98
07/16/24 07:45 07/16/24 07:45 07/16/24 07:45 07/16/24 07:45 07/16/24 07:45
Physical Exam
Constitutional: No Acute Distress
Cardiovascular: Regular Rate and S1/S2; Negative Murmur or Rub
Pulmonary: Clear and Symmetric; Negative Wheezes or Rales
Gastrointestinal: Soft, Non Tender, Non Distended and Normal Bowel Sounds
Skin: Warm and Dry; Negative Rash or Jaundice
Objective Data
Lab Data
Lab Results
07/16/24 05:39
07/16/24 05:39
Estimated Creat Clear 85 ml/min 07/16/24 05:39
Lactic Acid Cancelled 07/13/24 21:30
Total Bilirubin 0.4 mg/dl (0.2-1.3) 07/15/24 05:21
AST 24 U/L (14-36) 07/15/24 05:21
ALT 21 U/L (0-35) 07/15/24 05:21
Alkaline Phosphatase 95 U/L (38-126) 07/15/24 05:21
Most recent labs reviewed.
Micro Results:
07/13/24 17:51 Urine Culture - Final
Urine Escherichia coli
07/13/24 18:58 Blood Culture - Preliminary
Blood/Venous No Growth in 48 hours- Final report to follow
07/13/24 17:50 Blood Culture - Preliminary
Blood/Venous No Growth in 48 hours- Final report to follow
Care Review
Plan reviewed with: Physician (Dr Jaxson marrero, abx)
--- NOTE | 2024-07-16 10:36 | W.PN.URO.CBU ---
Today's Communication / Plan
-
will bring to OR tomorrow [Wed] to address presumptively large, infected renal stone -- Left Ureteroscopy, Laser Lithotripsy, Stenting
Assessment / Plan
-
Left Renal Stone: large, upper pole, non-obstructing
h/o left ureteral stricture
Left Pyelonephritis - Urosepsis
Clinically improving
Diagnosis
-
Date of Service: July 16, 2024
-
Patient Diagnosis:
Post Op Day:
Patient Diagnosis:
Left Renal Stone: large, upper pole, non-obstructing
h/o left ureteral stricture
Left Pyelonephritis - Urosepsis -- E.coli
Objective
-
Vital Signs
Temp Pulse Resp BP Pulse Ox
98.2 F 82 16 143/74 98
07/16/24 07:45 07/16/24 07:45 07/16/24 07:45 07/16/24 07:45 07/16/24 07:45
Intake and Output
07/15/24 07/16/24 07/17/24
06:59 06:59 06:59
Intake Total 3370 / 3370 915 / 915
Output Total 550 / 550
Balance 3370 / 3370 365 / 365
Intake:
Oral fluids 720 / 720 540 / 540
IV fluids (Total) 2500 / 2500 375 / 375
IV piggybacks 150 / 150
Output:
Urine, Voided 550 / 550
Other:
Number of approximated MODERATE 2 1
amounts of urine
Laboratory Results
07/16/24 05:39
07/16/24 05:39
Physical Exam
-
General - well developed, well nourished, no acute distress
Chest - clear bilaterally
Abdomen - soft, non-tender, positive bowel sounds, no CVAT, no incisional pain or distention
Genitalia - normal
Rectal - normal
Skin - warm & dry with no rash
Neuro - AOx3, no motor deficits
Extremities - no clubbing, no cyanosis, no edema
Incision - clean, dry
Dressing - clean, dry, intact
Care Review
Data Reviewed
Discussed with: Hospitalist
[2024-07-16] MEDS: SENOKOT-S PO (11:31)
[2024-07-16] MEDS: ANCEF 10 IV ×2 (11:32→19:45)
[2024-07-16] MEDS: LINZESS 72 MCG PO (11:32)
--- NOTE | 2024-07-16 13:54 | PN.CDI ---
CDI
- -
CDI:
Physician Documentation Request
Admit Date: 07/13/24 20:44
Dear Doctor Jaxson,
Clinical Indicators:
Patient admitted with Sepsis.
07/14 Urology consult, 'history of urolithiasis dating back to 2016, at which time CT stone protocol from 02/2017 demonstrated a 4 mm left UPJ calculus with hydronephrosis. She underwent successful left ESWL with Dr. Nair ...After experiencing
intermittent left renal colic, CT in 11/2019 demonstrated moderate left-sided hydronephrosis with a normal-appearing ureter. Dr Sherman subsequently performed ureteroscopy, dilation of left renal stricture and stenting.'
07/16 PN, 'Sepsis due to left renal pyelonephritis Prior history of left renal nonobstructing stones x4'
Please clarify which of the following accurately represents the acuity of the pyelonephritis . Possible options might include:
Acute Pyelonephritis
Acute on Chronic Pyelonephritis
Chronic Pyelonephritis
Other, please specify
Use of terms such as suspected, likely, concern for, or probable (associated with a specific diagnosis that is being evaluated, monitored, or treated as if it exists) are acceptable and can be coded in the inpatient setting, when documented at the
time of discharge.
Thank you,
Kristyn Hall RN BSN
CDI Specialist
available via tiger text
Please use your independent medical judgment in providing your response.
--- NOTE | 2024-07-16 14:08 | PN.CDI ---
CDI
- -
CDI:
Physician Documentation Request
Admit Date: 07/13/24 20:44
Dear Doctor Jaxson,
Clinical Indicators:
Patient admitted with sepsis due to pyelonephritis.
Cr/GFR trend:
07/13/24 07/15/24 07/16/24
17:50 05:21 05:39
Creatinine 1.3 H 1.0 0.8
eGFR 50.10 > 60.00 > 60.00
Please clarify which of the following accurately represents the patient's renal status:
ORESTES
Rise in creatinine only
Other, please specify
Criteria for ORESTES*
1 Increase in serum creatinine by > or = to 0.3 mg/dL (> or = to 26.5 micromol/L) within 48 hours, OR
2 Increase in serum creatinine to > or = to 1.5 times baseline, which is known or presumed to have occurred within 7 days, OR
3 Urine volume < 0.5 nL/kg/hour for six hours
Use of terms such as suspected, likely, concern for, or probable (associated with a specific diagnosis that is being evaluated, monitored, or treated as if it exists) are acceptable and can be coded in the inpatient setting, when documented at the
time of discharge.
Thank you,
Kristyn Hall RN BSN
CDI Specialist
available via tiger text
Please use your independent medical judgment in providing your response.
*Source: Kidney Disease: Improving Global Outcomes (KDIGO) 2012
[2024-07-16] MEDS: MIRALAX 17 GRAMS PO (15:17)
[2024-07-16 15:35] VITALS: BP 133/74
--- NOTE | 2024-07-16 15:38 | PTCARENOTE ---
Rec'd pt this AM. remains afebrile. Up at [facility]. Walking in halls. Pain meds given. stool softeners given. now resting comfortably
[2024-07-16] MEDS: SENOKOT-S 1 TABLET PO (19:45)
[2024-07-16 23:32] VITALS: BP 147/94
[2024-07-17] VITALS (7 sets, daily range): BP systolic 124–159; BP diastolic 71–102
--- NOTE | 2024-07-17 00:26 | PTCARENOTE ---
Pt well informed regarding procedure planned. Pt having 6/10 flank pain. Heat pad attempted. PRN Oxycodone administered see JUN. Pt remains A-febrile. Dose of Ancef given. Pt states she is having flatus but no substantial BM. Bowel sounds present in
all 4 quadrants. Senokot given. Pt ambulating in the room. Pt has the call issa within reach.
[2024-07-17] MEDS: ANCEF 10 IV ×2 (05:24→15:42)
[2024-07-17] MEDS: SYNTHROID 150 MCG PO (05:24)
--- NOTE | 2024-07-17 06:10 | PTCARENOTE ---
Patient transferred to [address] [place] [address] via wheelchair. Report called to receiving RN. All patients belongings were collected and sent with the patient.
[2024-07-17] MEDS: DULCOLAX 10 MG RECTAL (06:11)
[2024-07-17 06:12] LABS: Blood Urea Nitrogen 8 mg/dl (7-17); Calcium 8.3 mg/dl (8.4-10.2); Carbon Dioxide 24 mmol/L (22-30); Chloride 104 mmol/L (98-107); Estimated Creatinine Clearance 85 ml/min; Glucose 80 mg/dl (70-99); Potassium 3.8 mmol/L (3.5-5.1); Sodium 138 mmol/L (135-145); eGFR > 60.00
[2024-07-17 06:21] LABS: Hematocrit 32.3 % (37.0-47.0); Mean Corp Hgb Conc. 34.1 g/dL (33.0-37.0); Mean Corpuscular Hgb 30.8 pg (27.0-31.0); Mean Corpuscular Volume 90.5 fL (81.0-99.0); Mean Platelet Volume 9.3 fL (7.4-10.4); Platelet Count 233 10^3/uL (130-400); Red Blood Cell Count 3.57 10^6/uL (4.20-5.40); White Blood Cell Count 9.8 10^3/uL (4.8-10.8)
[2024-07-17] MEDS: WELLBUTRIN XL (24 hour extended release) 300 MG PO (09:19)
[2024-07-17] MEDS: RESTASIS 0.05% OPHTHALMIC EMULSION 1 DROPS BOTH EYES (09:19)
[2024-07-17] MEDS: SENOKOT-S 1 TABLET PO (09:20)
[2024-07-17] MEDS: HEPARIN SC (09:20)
--- NOTE | 2024-07-17 10:56 | W.SUR.PREOP ---
Pre-Operative Surgical Note
-
I have examined this patient prior to the performance of the scheduled procedure.
Surgical consent signed.
--- NOTE | 2024-07-17 11:11 | W.PN.HOSP.TC ---
Addendum entered and electronically signed by Jodryn Al MD 07/17/24 15:53:
total DC time 40 min
Addendum entered and electronically signed by Jordyn Al MD 07/17/24 13:04:
I saw and evaluated the patient. I reviewed the resident�s note and agree with findings and plan as documented in the resident�s note.
A/P:
# sepsis POA 2/2 left kidney Pyelonephritis
# H/O kidney stones
non-obstructing kidney stones in the left kidney. No abscess.
Urine culture growing pansensitive E coli
cefepime -> Zosyn -> cefazolin
for OR 07/17 for Left Ureteroscopy, Laser Lithotripsy, Stenting
Per ID, post procedure can switch to keflex 500 mg PO QID for a 10 day total course
Appreciate ID and Uro input
# Hypothyroidism
continue Synthroid 150 mcg
# Essential Hypertension
hold HCTZ
continue metoprolol with hold parameters
BP improved
Original Note:
Today's Communication/Plan
-
Lithotripsy procedure today
Continue cefazolin
Postprocedure transition to Keflex 500 mg PO QID for 10-day course per ID
Assessment / Plan
Assessment / Plan
Impression
Acute left renal pyelonephritis with pansensitive E. coli
Acute kidney injury
Hypothyroidism
Essential hypertension
Plan
Acute left renal pyelonephritis with pansensitive E. coli
Sepsis resolved
Prior history of left renal nonobstructing stones x4
Afebrile, WBC improved/resolved
Patient is scheduled for lithotripsy procedure today
Continue IV cefazolin
Postprocedure transition to Keflex 500 mg PO QID for 10-day course per ID
Monitor temp curve and WBC
Pain control
Bowel regimen
Acute kidney injury--resolved
Creatinine 1.3 on admission
Now 0.8
Hypothyroid
continue synthroid 150 mcg
Essential Hypertension
hold HCTZ
continue metoprolol with hold parameters
DVT Proph -- SC heparin
Code status - Full Code
Anticipated Discharge: 24 - 48 hours
Subjective/Interval History
-
Date of Service: July 17, 2024
No overnight events
Objective Data
-
Labs:
Laboratory Results
07/17/24
05:25
WBC 9.8
Hgb 11.0 L
Hct 32.3 L
Plt Count 233
Sodium 138
Potassium 3.8
Chloride 104
Carbon Dioxide 24
BUN 8
Creatinine 0.8
Glucose 80
Calcium 8.3 L
Vital Signs:
Vital Signs
Temp Pulse Resp BP Pulse Ox
98.3 F 74 16 159/102 98
07/17/24 07:50 07/17/24 07:50 07/17/24 07:50 07/17/24 07:50 07/17/24 07:50
I&O
07/16/24 07/17/24 07/18/24
06:59 06:59 06:59
Intake Total 915 / 915 480 / 480
Output Total 550 / 550
Balance 365 / 365 480 / 480
Review of Systems
-
All other systems: Reviewed and negative
Physical Exam
-
General: No Apparent Distress and Comfortable
HEENT: Normocephalic and Atraumatic
Respiratory: Clear to Auscultation
Cardiac: Regular Rhythm and S1/S2
GI: Soft, Nontender and Nondistended
Genito-urinary: No Costovertebral Tender
Skin: Warm and Dry
Neuro: AO x 3
Psych: Calm
Data Reviewed
-
Labs: Labs Reviewed by me and Discussed with Physician
[2024-07-17] MEDS: ZOFRAN 4 MG IV (11:32)
[2024-07-17] MEDS: FLUSH (NSS) 2 FLUSH IV (11:32)
--- NOTE | 2024-07-17 11:57 | CM ---
Reviewed the chart notes. Patient off floor to OR today for Lithotripsy procedure. CM continues to be available to patient/family and is monitoring medical plan for needs at discharge.
Plan: Discharge to home when medically stable. No needs anticipated.
--- NOTE | 2024-07-17 12:08 | W.PN.ID1 ---
Date of Service
Date of Service: July 17, 2024
Today's Communication
- c/w cefazolin given plans for the OR, post procedure she can switch to keflex 500 mg PO QID for a 10 day total course
- follow up with urology
Assessment / Plan
Possible Pyelonephritis
Graves disease
- c/w cefazolin given plans for the OR, post procedure she can switch to keflex 500 mg PO QID for a 10 day total course
- follow up with urology
Chief Complaint
-: Other (pyelonephritis)
Subjective / Review of Systems
no further fevers
bp stable
Vital Signs / Physical Exam
Vital Signs
Vital Signs
Temp Pulse Resp BP Pulse Ox
98.3 F 74 16 159/102 98
07/17/24 07:50 07/17/24 07:50 07/17/24 07:50 07/17/24 07:50 07/17/24 07:50
Physical Exam
Constitutional: No Acute Distress
Cardiovascular: Regular Rate and S1/S2; Negative Murmur or Rub
Pulmonary: Clear and Symmetric; Negative Wheezes or Rales
Gastrointestinal: Soft, Non Tender, Non Distended and Normal Bowel Sounds
Skin: Warm and Dry; Negative Rash or Jaundice
Objective Data
Lab Data
Lab Results
07/17/24 05:25
07/17/24 05:25
Estimated Creat Clear 85 ml/min 07/17/24 05:25
Lactic Acid Cancelled 07/13/24 21:30
Total Bilirubin 0.4 mg/dl (0.2-1.3) 07/15/24 05:21
AST 24 U/L (14-36) 07/15/24 05:21
ALT 21 U/L (0-35) 07/15/24 05:21
Alkaline Phosphatase 95 U/L (38-126) 07/15/24 05:21
Most recent labs reviewed.
Micro Results:
07/13/24 18:58 Blood Culture - Preliminary
Blood/Venous No Growth in 72 hours- Final report to follow
07/13/24 17:50 Blood Culture - Preliminary
Blood/Venous No Growth in 72 hours- Final report to follow
07/13/24 17:51 Urine Culture - Final
Urine Escherichia coli
--- NOTE | 2024-07-17 15:11 | W.DCSUMMARY ---
Documented by User: Len Puri MD, Resident 07/17/24 15:45
Discharge Summary
Discharge Data
Date of Admission: 07/13/24
Date of Discharge: 07/17/24
-
Pending Results: No
Hospital Course
Discharging Physician : Dr Len Puri, Dr Servando Cobb. H
Disposition : Home
Primary care physician :
Principal Discharge diagnosis :
sepsis POA 2/2 left kidney Pyelonephritis
History of renal stones
Acute kidney injury
Chronic Discharge diagnosis :
Hypothyroidism
Essential hypertension
Hospital Course : 49-year-old female presented with left-sided flank pain and fever. In the ED though patient was afebrile, she had elevated white count and UA markedly positive for infection. Blood cultures positive for pansensitive E. coli.
She was started on empiric antibiotic. ID and urology were following. Patient was already scheduled for left laser lithotripsy, ureteroscopy and stenting of large infected left renal stone in the hospital. She had a successful procedure with
stable vitals post procedure. At discharge, transition to oral Keflex 500 mg 4 times daily to complete 10-day course. Advised to follow-up with urology outpatient. Advised for repeat KUB and urine culture outpatient.
Important imaging findings :
07/13/24 CT abdomen/pelvis
There is a large 2.2 cm nonobstructing stone in the superior pole of the left kidney. There is slight asymmetric stranding along the superior pole the left kidney which is nonspecific however can be seen with infection. Additionally there is a small
focus of gas within the superior pole of the left kidney which raises the possibility of emphysematous pyelonephritis. Recommend correlation with urinalysis. There are additional nonobstructing stones in the inferior pole the left kidney measuring
up to 3 mm. Punctate nonobstructing stone in the lower pole the right kidney.
Procedure findings : Left laser lithotripsy, ureteroscopy and stenting
Discharge Plan
-
Patient Disposition: Home (Routine Discharge)
Discharge Diagnosis/Procedures: Left E. coli Pyelonephritis
Left Renal Stone s/p Ureteroscopy, Laser Lithotripsy, Stenting
Acute kidney injury
Hypothyroidism
Essential hypertension
Condition: Good
Diet: No restrictions
Activity: No restrictions
Driving Restrictions: No driving for 24 hours
Bathing Restrictions: None
Others Tests: Have an 'KUB' x-ray performed at on 07/26 or 07/27 -- order sent
Go to [facility] to have a urine culture performed on on 07/26 or 07/27 -- order sent
Referrals:
Alejandro Garzon MD [Active] - in two to three weeks (call to schedule an appointment during last week of July/first week of August)
Nicolas Caldera MD [Family Provider] - in less than 1 week
Additional Discharge Medication Instructions: Left E. coli pyelonephritis
Start taking Keflex 500 mg 1 tablet to be taken 4 times daily for 6 more days
KUB x-ray to be done on 07/26 or 07/27
[facility] 07[facility]
Follow-up with urology outpatient
Follow-up with primary care physician
Prescriptions:
New
cephalexin 500 mg capsule
500 mg PO QID 6 Days Qty: 24 0RF
Continued
levothyroxine 150 MCG tablet
150 mcg PO DAILY
melatonin 3 MG tablet
3 mg PO HSPRN PRN (Reason: sleep)
cholecalciferol (vitamin D3) 1,000 UNITS tablet
1,000 units PO HS
metoprolol succinate 50 mg Tablet Extended Release 24 Hr
50 mg PO DAILY
ondansetron 8 mg Tablet,Disintegrating
8 mg PO DAILYPRN PRN (Reason: nausea)
dextroamphetamine sulfate 10 mg Capsule, Extended Release
10 mg PO BID
zolpidem 10 mg Tablet
10 mg PO HSPRN PRN (Reason: sleep)
etonogestrel-ethinyl estradiol [EluRyng] 0.12-0.015 mg/24 hr Ring
1 vag ring VAGINAL Q4W
cyclosporine 0.05 % Dropperette
1 drp BOTH EYES Q12H
bupropion HCl 150 mg Tablet Extended Release 24 Hr
300 mg PO DAILY
hydrochlorothiazide 12.5 mg Tablet
12.5 mg PO DAILY
Linzess 72 mcg Capsule
72 mcg PO DAILYPRN PRN (Reason: ibs)
Discharge Orders:
Discharge Patient (As Directed); Ordered 07/17/24
Ordered By: Len Puri
Discharge Date and Time
Print Language: ARMENIAN

Documented by User: Jordyn Al MD 07/17/24 15:52
Discharge Summary
Discharge Data
Date of Admission: 07/13/24
Date of Discharge: 07/17/24
Hospital Course
Discharging Physician : Dr Len Puri, Dr Servando Cobb. H
Disposition : Home
Principal Discharge diagnosis :
sepsis POA 2/2 left kidney Pyelonephritis
History of renal stones
Acute kidney injury
Chronic Discharge diagnosis :
Hypothyroidism
Essential hypertension
Hospital Course : 49-year-old female presented with left-sided flank pain and fever. Her CT scan showed slight asymmetric stranding along the upper pole the left kidney and nonobstructing stone in the inferior pole the left kidney measuring 3 mm.
Her urine culture was positive for pansensitive E. coli. She was started on empiric antibiotic. ID and urology were following. Patient underwent left laser lithotripsy, ureteroscopy and stenting of large infected left renal stone while in the
hospital. She had a successful procedure with stable vitals post procedure. At discharge, she was transition to oral Keflex 500 mg 4 times daily to complete 10-day course. Advised to follow-up with urology outpatient. Advised for repeat KUB and
urine culture outpatient.
Important imaging findings :
07/13/24 CT abdomen/pelvis
There is a large 2.2 cm nonobstructing stone in the superior pole of the left kidney. There is slight asymmetric stranding along the superior pole the left kidney which is nonspecific however can be seen with infection. Additionally there is a small
focus of gas within the superior pole of the left kidney which raises the possibility of emphysematous pyelonephritis. Recommend correlation with urinalysis. There are additional nonobstructing stones in the inferior pole the left kidney measuring
up to 3 mm. Punctate nonobstructing stone in the lower pole the right kidney.
Procedure findings : Left laser lithotripsy, ureteroscopy and stenting
Discharge Plan
-
Patient Disposition: Home (Routine Discharge)
Discharge Diagnosis/Procedures: Left E. coli Pyelonephritis
Left Renal Stone s/p Ureteroscopy, Laser Lithotripsy, Stenting
Acute kidney injury
Hypothyroidism
Essential hypertension
Condition: Good
Diet: No restrictions
Activity: No restrictions
Driving Restrictions: No driving for 24 hours
Bathing Restrictions: None
Others Tests: Have an 'KUB' x-ray performed at on 07/26 or 07/27 -- order sent
Go to [facility] to have a urine culture performed on on 07/26 or 07/27 -- order sent
Referrals:
Alejandro Garzon MD [Active] - in two to three weeks (call to schedule an appointment during last week of July/first week of August)
Nicolas Caldera MD [Family Provider] - in less than 1 week
Additional Discharge Medication Instructions: Left E. coli pyelonephritis
Start taking Keflex 500 mg 1 tablet to be taken 4 times daily for 6 more days
KUB x-ray to be done on 07/26 or 07/27
Go to [facility] to have a urine culture performed on 07/26 or 07/27
Follow-up with urology outpatient
Follow-up with primary care physician
Prescriptions:
New
cephalexin 500 mg capsule
500 mg PO QID 6 Days Qty: 24 0RF
Continued
levothyroxine 150 MCG tablet
150 mcg PO DAILY
melatonin 3 MG tablet
3 mg PO HSPRN PRN (Reason: sleep)
cholecalciferol (vitamin D3) 1,000 UNITS tablet
1,000 units PO HS
metoprolol succinate 50 mg Tablet Extended Release 24 Hr
50 mg PO DAILY
ondansetron 8 mg Tablet,Disintegrating
8 mg PO DAILYPRN PRN (Reason: nausea)
dextroamphetamine sulfate 10 mg Capsule, Extended Release
10 mg PO BID
zolpidem 10 mg Tablet
10 mg PO HSPRN PRN (Reason: sleep)
etonogestrel-ethinyl estradiol [EluRyng] 0.12-0.015 mg/24 hr Ring
1 vag ring VAGINAL Q4W
cyclosporine 0.05 % Dropperette
1 drp BOTH EYES Q12H
bupropion HCl 150 mg Tablet Extended Release 24 Hr
300 mg PO DAILY
hydrochlorothiazide 12.5 mg Tablet
12.5 mg PO DAILY
Linzess 72 mcg Capsule
72 mcg PO DAILYPRN PRN (Reason: ibs)
Discharge Orders:
Discharge Patient (As Directed); Ordered 07/17/24
Ordered By: Len Puri
Discharge Date and Time
Print Language: ARMENIAN
[2024-07-17] MEDS: LEVAQUIN 100 IV (15:42)
[2024-07-17] MEDS: TRANSDERM-SCOP 1 PATCH TRANSDERM (15:42)
[2024-07-17] MEDS: ROXICODONE 5 MG PO (16:51)
[2024-07-17] MEDS: MIRALAX PO (16:53)
== END 2024-07-17 18:50 | disposition home or self-care (01) | DRG 854 ==
LOC: 2 SOUTH 20:44
PROVIDERS: Internal Medicine; Nurse Practitioner Family; Student in an Organized Health Care Education/Training Program; ADMITTING PHYSICIAN Internal Medicine; ATTENDING PHYSICIAN Internal Medicine; CONSULT PHYSICIAN Student in an Organized Health Care Education/Training Program; EMERGENCY PHYSICIAN Emergency Medicine; FAMILY PHYSICIAN Family Medicine; OTHER PHYSICIAN Specialist
PROC: 0T778DZ Dilation of Left Ureter with Intraluminal Device, Via Natural or Artificial Opening Endoscopic (ICD-10-PCS; 2024-07-17)
PROC: 0TC78ZZ Extirpation of Matter from Left Ureter, Via Natural or Artificial Opening Endoscopic (ICD-10-PCS; 2024-07-17)
DX: A41.9 Sepsis, unspecified organism (principal); N13.6 Pyonephrosis; N17.9 Acute kidney failure, unspecified; I10 Essential (primary) hypertension; N20.0 Calculus of kidney; E89.0 Postprocedural hypothyroidism; E05.00 Thyrotoxicosis with diffuse goiter without thyrotoxic crisis or storm
CPT/HCPCS: 74018; 74176; 76000; 80048; 80053; 81003; 81015; 83605; 83735; 85025; 85027; 87040; 87077; 87086; 87186; 96361; 96374; 96375; 99291; C1894; C2617

== ENCOUNTER 2024-08-04 23:41 | Inpatient (IN) | payer OTHER, SELFPAY ==
[2024-08-04] VITALS (8 sets, daily range): BP systolic 86–109; BP diastolic 59–73; BMI 25.7
[2024-08-04 20:59] LABS: Hematocrit 38.5 % (37.0-47.0); Hemoglobin 12.8 g/dL (12.0-16.0); Mean Corp Hgb Conc. 33.2 g/dL (33.0-37.0); Mean Corpuscular Hgb 30.1 pg (27.0-31.0); Mean Corpuscular Volume 90.6 fL (81.0-99.0); Mean Platelet Volume 9.2 fL (7.4-10.4); Platelet Count 366 10^3/uL (130-400); Red Blood Cell Count 4.25 10^6/uL (4.20-5.40); Red Cell Dist. Width 12.3 % (11.5-14.5); White Blood Cell Count 26.5 10^3/uL (4.8-10.8)
[2024-08-04 21:07] LABS: ALT (SGPT) 24 U/L (0-35); AST (SGOT) 32 U/L (14-36); Albumin 4.2 g/dl (3.5-5.0); Alkaline Phosphatase 178 U/L (38-126); Blood Urea Nitrogen 18 mg/dl (7-17); Calcium 9.2 mg/dl (8.4-10.2); Carbon Dioxide 22 mmol/L (22-30); Chloride 103 mmol/L (98-107); Glucose 89 mg/dl (70-99); Potassium 4.3 mmol/L (3.5-5.1); Sodium 138 mmol/L (135-145); Total Protein 7.4 g/dl (6.3-8.2); Urine Albumin 3+ (Neg - Trace); Urine Bilirubin 2+ (Negative); Urine Character Cloudy (Clear); Urine Glucose Negative (Negative); Urine Ketone Negative (Negative); Urine Leukocyte 3+ (Negative); Urine Nitrite Positive (Negative); Urine Occult Blood 4+ (Negative); Urine Urobilinogen 3+ (Neg - 1+); eGFR 39.05
[2024-08-04 21:13] LABS: Lactic Acid 1.9 mmol/L (0.7-2.0)
[2024-08-04 21:22] LABS: Urine Color Orange
[2024-08-04 21:25] LABS: Urine White Cell >100 /HPF (0-5)
[2024-08-04 21:27] LABS: HCG, Serum Qualitative Screen Negative
[2024-08-04 21:41] LABS: % Basophils 0.5 % (0-2); % Immature Granulocytes 0.8 % (0-0.5); % Lymphocytes 4.7 % (20.5-51.1); % Monocytes 2.8 % (1.7-9.3); % Neutrophils 90.2 % (42.2-75.2); Absolute Basophils 0.1 10^3/uL (0-0.2); Absolute Eosinophils 0.3 10^3/uL (0-0.7); Absolute Immature Granulocytes 0.2 10^3/uL (0-0.05); Absolute Lymphocytes 1.3 10^3/uL (1.2-3.4); Absolute Monocytes 0.8 10^3/uL (0.1-0.6); Absolute Neutrophils 23.9 10^3/uL (1.4-6.5); Nucleated Red Blood Cells % 0 %
--- NOTE | 2024-08-04 21:52 | ED.GENMED ---
History of Present Illness
<IAM Hand - Last Filed: 08/05/24 00:19>
General
Chief Complaint: Fever
Source: patient
Exam Limitations: none
Time Seen by Provider: 08/04/24 21:51
Nursing documentation reviewed up to this point in time: agreed with
History of Present Illness
History of Present Illness:
49 yr old female presents to the ER for evaluation. Patient was recently admitted for sepsis due to a left kidney pyelonephritis for left laser lithotripsy and stenting of a large infected left renal stone. she does report they did not get all of
the stone and she is scheduled for second lithotripsy with Dr. Garzon August 14. When she left the hospital she was on antibiotics but did not complete them. She started with a fever of 101 yesterday.
Past History
<IAM Hand - Last Filed: 08/05/24 00:19>
Past History
ED Past Medical History: Hyperthyroidism (Graves) and Other (Kidney stones, ADHD, hypertension)
ED Past Surgical History: Cholecystectomy, Urological (Lithotripsy) and Other (Thyroidectomy, breast augmentation, 'tummy tuck')
Social History
Tobacco: Non-smoker
Alcohol: Occasional
Drug: None
Personal:
Living: alone
Employment: Employed
Review of Systems
<IAM Hand - Last Filed: 08/05/24 00:19>
Review of Systems
Allergies reviewed?: Yes
All Other Systems: ROS reviewed and negative except as documented in HPI and ROS
Constitutional: Reports fever
EENT: Reports no symptoms
Respiratory: Reports no symptoms
Cardiac: Reports no symptoms
ABD/GI: Reports no symptoms
: Reports no symptoms; Denies dysuria, flank pain, urgency or discharge
Musculoskeletal: Reports no symptoms; Denies muscle pain or neck pain
Skin: Reports no symptoms
Neurological: Reports no symptoms
Psychiatric: Reports no symptoms
Phy Exam
<IAM Hand - Last Filed: 08/05/24 00:19>
General Physical Exam
General Presentation: no apparent distress
General age: appears stated age
General Skin: warm and dry
General Habitus: normal
General Mental: alert
General Hydration: appears well hydrated
Cardiovascular Exam
Cardiovascular Exam: regular rate/rhythm, no murmur and normal peripheral pulses
Pulmonary Exam
Pulmonary Exam: lungs clear and no respiratory distress
Gastrointestinal Exam
Gastrointestinal Exam: normal bowel sounds and non tender
Neurological Exam
Neurological Exam: alert and oriented x3
Musculoskeletal Exam
Musculoskeletal Exam: full ROM
Skin Exam
Skin Exam: normal color and warm/dry
Psychiatric Exam
Psychiatric Exam: normal mood/affect
Course
<IAM Hand - Last Filed: 08/05/24 00:19>
Orders/Labs/Results
Orders:
Orders
08/04/24 20:30
Electrocardiogram (*1) Urgent
Reason for Study: Other
Other Reason for Exam: Possible Sepsis
08/04/24 20:31
EKG- Treatment ONCE
Test Result ONCE
08/04/24 20:43
Complete Blood Count/With Diff Urgent
Comprehensive Metabolic Panel Urgent
HCG, Serum Qualitative Screen Urgent
Comment: Notify provider if positive test present
Lactic Acid Urgent
Urinalysis Reflex To Culture Urgent
Date Specimen was Collected: 08/04/24
Time Specimen was Collected: 20:31
Urine Microscopic Reflex Cult Urgent
Urine Culture Urgent
JANAE Source: U
Specimen Description:
Date Specimen was Collected: 08/04/24
Time Specimen was Collected: 20:31
08/04/24 22:08
0.9% Sodium Chloride 1000 ml [Nss] 1,000 ml IV BOLUS
08/04/24 22:15
CefTRIAXone [Rocephin] 2,000 mg IV NOW STA
08/04/24 22:17
CT Abd/pel Without Iv Or Oral Urgent
Comment:
Reason For Exam: fever UTI/stent in place
08/04/24 23:00
0.9% Sodium Chloride 1000 ml [Nss] 1,000 ml IV 150 mls/hr
Flush (0.9% Sodium Chloride) [Flush (Nss)] See Dose Instructions IV PER PROTOCOL
08/04/24 23:02
Blood Culture Q30M
JANAE Source: Blood/Venous
Specimen Description:
Blood Culture Q30M
JANAE Source: Blood/Venous
Specimen Description:
08/04/24 23:25
Gentamicin Sulfate [Gentamicin] 150 mg 0.9% Sodium Chloride [Nss] 50 ml IV NOW
08/04/24 23:26
Admit/Transfer Patient As Directed
Co-Sign Provider:
Level of Care: Inpatient admission
Assign to:: IMU- Intermediate Care
Physician / Group: Rommel
Diagnosis: Sepsis, UTI
Reason for Hospitalization: IVFs, IV abx
Expected length of stay greater than two midnights?: Yes
ELOS- Estimated Length of Stay in days: 3
I certify the patient meets the requirements for IP care: Yes
PRN Pain Medication Management As Directed
May give lesser potent ordered pain med per pt: Yes
preference::
Protocol:: Medication orders for pain may be administered in a
manner that supports deferring to patient preference
when the pt is:
- Requesting an ordered lesser potent pain medication.
Least to most potent pain medications are defined
as: acetaminophen < NSAID < tramadol < opioids
(morphine, oxycodone, hydromorphone).
- Requesting a lesser dose of the same medication IF
ORDERED.
- Requesting a less intrusive route of administration
if both routes are prescribed by the provider (PO <
IV).
08/04/24 23:27
Sterile Water [Sterile Water For Injection] 20 ml .ROUTE .STK-MED
08/04/24 23:28
Code Status As Directed
Resuscitation Status: Full Code
08/04/24 23:31
0.9% Sodium Chloride 1000 ml [Nss] 1,000 ml IV BOLUS
Abnormal Lab Results
08/04/24
20:43
WBC 26.5 H 10^3/uL
(4.8-10.8)
Abs Immat Gran (auto) 0.2 H 10^3/uL
(0-0.05)
Absolute Neuts (auto) 23.9 H 10^3/uL
(1.4-6.5)
Absolute Monos (auto) 0.8 H 10^3/uL
(0.1-0.6)
Immature Gran % 0.8 H %
(0-0.5)
Neutrophils % 90.2 H %
(42.2-75.2)
Lymphocytes % 4.7 L %
(20.5-51.1)
BUN 18 H mg/dl
(7-17)
Creatinine 1.6 H mg/dL
(0.6-1.0)
Alkaline Phosphatase 178 H U/L
(38-126)
Ur Occult Blood Reflex 4+ A
(Negative)
Urine Nitrite (Reflex) Positive A
(Negative)
Urine Bilirubin 2+ A
(Negative)
Urine Urobilinogen 3+ A
(Neg - 1+)
Leukocyte Esterase Rfl 3+ A
(Negative)
Urine WBC (Reflex) >100 A /HPF
(0-5)
Urine Albumin (Reflex) 3+ A
(Neg - Trace)
08/04/24 20:43
08/04/24 20:43
Vital Signs
Initial and Last Documented VS:
Initial Vital Signs
Temp Pulse Resp BP Pulse Ox
97.6 F 109 18 107/73 97
08/04/24 19:56 08/04/24 19:56 08/04/24 19:56 08/04/24 19:56 08/04/24 19:56
Last Documented Vital Signs
Temp Pulse Resp BP Pulse Ox
98.2 F 91 20 109/71 98
08/04/24 21:44 08/04/24 23:42 08/04/24 23:42 08/04/24 23:42 08/04/24 23:42
Reconciliation Clerk consulted with Physician
Reconciliation Clerk consulted with physician?: Yes
Name of Physician Consulted: Annette
<Mati Bryant MD - Last Filed: 08/04/24 22:42>
Orders/Labs/Results
Orders:
Orders
08/04/24 20:30
Electrocardiogram (*1) Urgent
Reason for Study: Other
Other Reason for Exam: Possible Sepsis
08/04/24 20:31
EKG- Treatment ONCE
Test Result ONCE
08/04/24 20:43
Complete Blood Count/With Diff Urgent
Comprehensive Metabolic Panel Urgent
HCG, Serum Qualitative Screen Urgent
Comment: Notify provider if positive test present
Lactic Acid Urgent
Urinalysis Reflex To Culture Urgent
Date Specimen was Collected: 08/04/24
Time Specimen was Collected: 20:31
Urine Microscopic Reflex Cult Urgent
Urine Culture Urgent
JANAE Source: U
Specimen Description:
Date Specimen was Collected: 08/04/24
Time Specimen was Collected: 20:31
08/04/24 22:08
0.9% Sodium Chloride 1000 ml [Nss] 1,000 ml IV BOLUS
08/04/24 22:15
CefTRIAXone [Rocephin] 2,000 mg IV NOW STA
08/04/24 22:17
CT Abd/pel Without Iv Or Oral Urgent
Comment:
Reason For Exam: fever UTI/stent in place
08/04/24 23:00
0.9% Sodium Chloride 1000 ml [Nss] 1,000 ml IV 150 mls/hr
Flush (0.9% Sodium Chloride) [Flush (Nss)] See Dose Instructions IV PER PROTOCOL
08/04/24 23:02
Blood Culture Q30M
JANAE Source: Blood/Venous
Specimen Description:
Blood Culture Q30M
JANAE Source: Blood/Venous
Specimen Description:
08/04/24 23:25
Gentamicin Sulfate [Gentamicin] 150 mg 0.9% Sodium Chloride [Nss] 50 ml IV NOW
08/04/24 23:26
Admit/Transfer Patient As Directed
Co-Sign Provider:
Level of Care: Inpatient admission
Assign to:: IMU- Intermediate Care
Physician / Group: Rommel
Diagnosis: Sepsis, UTI
Reason for Hospitalization: IVFs, IV abx
Expected length of stay greater than two midnights?: Yes
ELOS- Estimated Length of Stay in days: 3
I certify the patient meets the requirements for IP care: Yes
PRN Pain Medication Management As Directed
May give lesser potent ordered pain med per pt: Yes
preference::
Protocol:: Medication orders for pain may be administered in a
manner that supports deferring to patient preference
when the pt is:
- Requesting an ordered lesser potent pain medication.
Least to most potent pain medications are defined
as: acetaminophen < NSAID < tramadol < opioids
(morphine, oxycodone, hydromorphone).
- Requesting a lesser dose of the same medication IF
ORDERED.
- Requesting a less intrusive route of administration
if both routes are prescribed by the provider (PO <
IV).
08/04/24 23:27
Sterile Water [Sterile Water For Injection] 20 ml .ROUTE .STK-MED
08/04/24 23:28
Code Status As Directed
Resuscitation Status: Full Code
08/04/24 23:31
0.9% Sodium Chloride 1000 ml [Nss] 1,000 ml IV BOLUS
Abnormal Lab Results
08/04/24
20:43
WBC 26.5 H 10^3/uL
(4.8-10.8)
Abs Immat Gran (auto) 0.2 H 10^3/uL
(0-0.05)
Absolute Neuts (auto) 23.9 H 10^3/uL
(1.4-6.5)
Absolute Monos (auto) 0.8 H 10^3/uL
(0.1-0.6)
Immature Gran % 0.8 H %
(0-0.5)
Neutrophils % 90.2 H %
(42.2-75.2)
Lymphocytes % 4.7 L %
(20.5-51.1)
BUN 18 H mg/dl
(7-17)
Creatinine 1.6 H mg/dL
(0.6-1.0)
Alkaline Phosphatase 178 H U/L
(38-126)
Ur Occult Blood Reflex 4+ A
(Negative)
Urine Nitrite (Reflex) Positive A
(Negative)
Urine Bilirubin 2+ A
(Negative)
Urine Urobilinogen 3+ A
(Neg - 1+)
Leukocyte Esterase Rfl 3+ A
(Negative)
Urine WBC (Reflex) >100 A /HPF
(0-5)
Urine Albumin (Reflex) 3+ A
(Neg - Trace)
08/04/24 20:43
08/04/24 20:43
Vital Signs
Initial and Last Documented VS:
Initial Vital Signs
Temp Pulse Resp BP Pulse Ox
97.6 F 109 18 107/73 97
08/04/24 19:56 08/04/24 19:56 08/04/24 19:56 08/04/24 19:56 08/04/24 19:56
Last Documented Vital Signs
Temp Pulse Resp BP Pulse Ox
98.2 F 91 20 109/71 98
08/04/24 21:44 08/04/24 23:42 08/04/24 23:42 08/04/24 23:42 08/04/24 23:42
<IAM Hand - Last Filed: 08/05/24 00:19>
MDM/Problems Addressed
Differential Diagnosis Includes:
Not limited to urosepsis infected stone
MDM/Problems Addressed:
As documented patient is a 49-year-old female who was admitted several weeks ago with infected stone, sepsis with lithotripsy and stenting presents to the ER with fever. She reports fever was 101 yesterday no other complaints. She is in obvious
UTI on urinalysis with an elevated white count of 26,000 normal lactic creatinine is increased from 0.8 (07/17) to 1.6 today.
pt is stable appearing .
Patient denies any abdominal pain. Case discussed with Dr. Garzon who does recommend 2 g of Rocephin and aminoglycoside. IV gentamicin for urosepsis ordered. Fluids ordered. Will obtain CAT scan. Case discussed with ED physician.
Chronic conditions affecting care:
Recent renal stone with urosepsis
<IAM Hand - Last Filed: 08/05/24 00:19>
*Pulse Oximetry
Patient hypoxic: no
*Critical Care Note
Total Time (30-74mins, 75-104mins- exclusive of procedures): Not Applicable
Data Reviewed
Review of Other/Old Records Reveals: Labs, Radiology Studies and Discharge Summary
<IAM Hand - Last Filed: 08/05/24 00:19>
Patient Management
Discussion with other providers: [employer] Att[employer] (Duran )
ED Attending Note
<IAM Hand - Last Filed: 08/05/24 00:19>
-
Portions of this chart may have been created with voice recognition software.� Occasional wrong word or��sound alike� substitutions may have occurred due to the inherent limitations of voice recognition software.
<Mati Bryant MD - Last Filed: 08/04/24 22:42>
ED Attending Note
Patient seen and examined by attending physician: Yes
ED Attending Note:
I have seen and evaluated the patient with a [id number] encounter. I have spoken to the advance practicer provider and involved in the medical history, the physical exam, medical decision making.
Evaluation and management service: agree unless noted differently below.
Results interpretation: agree unless noted differently below.
Focused HPI: 49-year-old female with history as documented presents to the emergency room for evaluation of fever. Of note patient was admitted to this hospital 2 weeks ago with flank pain and fever was found to have UTI and infected kidney stone
and required ureteral stent on the left. She said she is scheduled for lithotripsy 08/14/2024. She says that last night and today she was having fever and chills. Because of this she came to the ER for evaluation. She has had some hematuria since
she had ureteral stent placed. She says she has some mild flank pain but again this has been consistent and intermittent since ureteral stent placement.
Physical exam: Awake and alert nontoxic-appearing. Tachycardic but otherwise normal vitals. Abdomen soft and nontender. No CVA tenderness.
Medical Decision Makin-year-old female with recent left ureteral stent placement for infected kidney stone presents for fever and chills. Labs show leukocytosis to 26.5. CMP shows renal insufficiency with a creatinine of 1.6 from baseline of
0.8. Fluids in progress. hCG negative. Urinalysis positive for infection. Will send for a CT to evaluate stent patency and to look for other obstructive pathology. Cover with IV antibiotics. Blood and urine culture sent off. Discussed with
urology who agrees with above. Will admit to hospitalist service.
Discharge Plan
Departure
Patient Disposition: Admit
Date of Disposition: 08/04/24
Time of Disposition: 22:41
Admit to: Med/Surg
Admit to doctor: hospitalist
Presentation/result/management discussed w/ accepting MD/DO: Hospitalist
Patient with high blood pressure during this ER visit?: No
Condition: Fair
Covid-19: Not Applicable
Discharge Problem:
urosepsis
Interventions
Interventions:
*Risk Screen - Suicide Last Done: 08/04/24 19:58
*General Assessment Last Done: 08/04/24 19:58
*Neglect/Abuse Screening Last Done: 08/04/24 19:58
*ED COVID-19 Vaccine History Last Done: 08/04/24 19:58
ED- Neurological Assessment Last Done: 08/04/24 23:34
ED-Skin Assessment Last Done: 08/04/24 23:34
--- NOTE | 2024-08-04 22:43 | HPS.HSE ---
Addendum entered and electronically signed by Jose Manuel Carney DO 08/04/24 23:55:
Patient seen and examined independently. Agree with findings and plan as set forth by Mary Ann Feldman PA-C.
Patient is a 49y F with PMH significant for hypertension and recent hospitalization for L ureteral stone / pyelonephritis who presents to ED complaining of recurrent fevers starting last PM. Patient underwent cysto with stone fragmentation and
stent placement and was discharged home on oral abx which she states she completed on Monday. Patient had been feeling fairly well until last PM when she developed subjective fevers / chills. No flank pain or abdominal pain. No dysuria. No
N/V/D.
Ass:
UTI / Pyelonephritis
Left Ureteral Stone s/p Cysto and Stent
Sepsis secondary to the above
ORESTES
Benign Hypertension
Hypothyroidism
Anxiety / Insomnia
Plan:
Admit to IMU for further evaluation and treatment.
Patient presents with leukocytosis, tachycardia and tachypnea with urinalysis consistent with infection.
Borderline BP in the ED - continue IVFs and add pressors if needed to maintain perfusion.
IV ceftriaxone pending culture data.
CT ordered in the ED / not yet done - follow-up results as patient may benefit from earlier intervention given sepsis.
Follow temperature curve and monitor for any new / worsening symptoms.
Hold usual antihypertensive medications.
Continue usual T4 supplementation.
Original Note:
Family Physician
-
Family Physician: Nicolas Caldera
Chief Complaint
-
Fever
History of Present Illness
Patient is a 49 y/o female past medical history of hypertension, anxiety, hypothyroidism and recent hospitalization for pyelonephritis secondary to infected non-obstructing kidney stone who presents with fevers. Patient was admitted to [facility] from July 13- for sepsis secondary to pyelonephritis in setting of infected non-obstructing kidney stone. During that hospitalization patient received IV antibiotics and under went laser lithotripsy with left ureteral stent placement
which remains in place. Patient states she did complete a coarse of Keflex after discharge. She developed fevers last night and today prompting her to return to the emergency department for evaluation. She reports intermittent hematuria since stent
placement but notes it is unchanged. She denies any dysuria or flank pain. She denies cough, nausea, vomiting, or diarrhea.
Medical History
Past Medical History
Past Medical History: Reports Other
Additional Past Medical History:
Essential Hypertension
Grave's Disease s/p Thyroidectomy
Anxiety / Insomnia
Past Surgical History: Reports Other
Additional Past Surgical History:
Thyroidectomy
Cholecystectomy
Breast Augmentation
Abdominal Liposuction
Lithotripsy
Social History
Tobacco: Non-smoker
Alcohol: Occasional
Drug: None
Personal:
Living: With Family
Family History
Family History: Not pertinent
Allergies / Home Medications
Allergies reflects when Allergies were last updated in [employer].
Home Medications with original date entered in [employer]
Allergy/Medication List:
Allergies
Allergy/AdvReac Type Severity Reaction Status Date / Time
No Known Allergies Allergy Verified 09/16/20 11:02
Home Medications
levothyroxine 150 mcg tablet 150 mcg PO DAILY Thyroid 09/09/17
melatonin 3 mg tablet 3 mg PO HSPRN PRN sleep 01/08/20
bupropion HCl 150 mg 24 hr tablet, extended release 300 mg PO DAILY Mental Health/Anxiety 07/13/24
cyclosporine 0.05 % eye drops in a dropperette 1 drp BOTH EYES Q12H Eye Condition 07/13/24
dextroamphetamine sulfate 10 mg capsule,extended release 10 mg PO BID Mental Health/Anxiety 07/13/24
etonogestrel 0.12 mg-ethinyl estradiol 0.015 mg/24 hr vaginal ring (EluRyng) 1 vag ring vaginal Q4W Hormonal Agent 07/13/24
hydrochlorothiazide 12.5 mg tablet 12.5 mg PO DAILY Blood Pressure 07/13/24
linaclotide 72 mcg capsule (Linzess) 72 mcg PO DAILYPRN PRN ibs 07/13/24
metoprolol succinate 50 mg tablet,extended release 24 hr 50 mg PO DAILY Heart Disease/Condition 07/13/24
ondansetron 8 mg disintegrating tablet 8 mg PO DAILYPRN PRN nausea 07/13/24
zolpidem 10 mg tablet 10 mg PO HSPRN PRN sleep 07/13/24
Review of Systems
-
History Source: Patient
A 12 point ROS was completed and negative except as noted: Yes
Respiratory: Denies Cough or Trouble Breathing
Cardiac: Denies Chest Pain or Palpitations
Abdomen/GI: Denies Abdominal Pain, Nausea, Vomiting, Diarrhea or Constipated
Physical Exam
Vital Signs
Vital Signs
Temp Pulse Resp BP Pulse Ox
98.2 F 92 20 99/70 98
08/04/24 21:44 08/04/24 21:44 08/04/24 21:44 08/04/24 21:44 08/04/24 21:44
Physical Exam
General: Comfortable and Conversant
HEENT: Anicteric and Moist mucous membranes
Respiratory: Clear and Non Labored Respirations
Cardiac: S1/S2 and Regular Rhythm
GI: Soft and Non Tender
Rectal: Deferred by Provider
Genito-urinary: No costovertebral tender
Musculoskeletal: No Clubbing and No Cyanosis
Skin: Warm and Dry
Neuro: Awake, Alert and Oriented
Psych: Calm
Laboratory Results
-
08/04/24 20:43
08/04/24 20:43
Laboratory Results
Lactic Acid 1.9 mmol/L (0.7-2.0) 08/04/24 20:43
Total Bilirubin 1.0 mg/dl (0.2-1.3) 08/04/24 20:43
AST 32 U/L (14-36) 08/04/24 20:43
ALT 24 U/L (0-35) 08/04/24 20:43
Alkaline Phosphatase 178 U/L (38-126) H 08/04/24 20:43
Data Reviewed
-
Lab Data: Labs Reviewed by me
Old Records: Reviewed
Impression/Plan
-
Severe Sepsis, possible septic shock, secondary to Recurrent Urinary Tract Infection
-Give additional 1L NSS bolus now for worsening hypotension - If BP remains low start Levophed
-Await CT scan to evaluate for recurrent pyelonephritis and possible ureteral obstruction
-Consult Urology - Patient may require OR tonight if evidence of obstruction
-Continue ceftriaxone
-Await urine and blood culture
Acute Kidney Injury
-Hold HCTZ
-Continue IVFs
-Recheck labs in AM
Essential Hypertension
-Hold HCTZ due to ORESTES
-Hold Metoprolol in setting of hypotension
Grave's Disease s/p Thyroidectomy
-Continue levothyroxine
Anxiety / Insomnia
-Continue bupropion
-Continue melatonin
DVT proph: SCDs
Code Status: Full Code
[2024-08-04] MEDS: NSS 1000 IV (23:15)
[2024-08-04] MEDS: ROCEPHIN 2000 MG IV (23:24)
[2024-08-05] VITALS (41 sets, daily range): BP systolic 83–122; BP diastolic 49–92
[2024-08-05] MEDS: GENTAMICIN 53.75 MG IV (00:13)
[2024-08-05] MEDS: TYLENOL 650 MG PO ×3 (01:10→16:56)
[2024-08-05] MEDS: NSS 1000 IV ×5 (01:13→21:40)
[2024-08-05] MEDS: LIDOCAINE 4% PATCH 1 PATCH TOPICAL (04:35)
[2024-08-05] MEDS: ZOFRAN 4 MG IV (05:30)
[2024-08-05 06:07] LABS: Hematocrit 32.9 % (37.0-47.0); Mean Corp Hgb Conc. 33.4 g/dL (33.0-37.0); Mean Corpuscular Hgb 30.2 pg (27.0-31.0); Mean Corpuscular Volume 90.4 fL (81.0-99.0); Mean Platelet Volume 9.3 fL (7.4-10.4); Platelet Count 225 10^3/uL (130-400); Red Blood Cell Count 3.64 10^6/uL (4.20-5.40); Red Cell Dist. Width 12.2 % (11.5-14.5)
[2024-08-05 06:23] LABS: Blood Urea Nitrogen 16 mg/dl (7-17); Calcium 7.7 mg/dl (8.4-10.2); Carbon Dioxide 21 mmol/L (22-30); Chloride 107 mmol/L (98-107); Estimated Creatinine Clearance 52 ml/min; Glucose 85 mg/dl (70-99); Potassium 3.7 mmol/L (3.5-5.1); Sodium 135 mmol/L (135-145)
[2024-08-05] MEDS: COMPAZINE 5 MG IV (06:39)
[2024-08-05] MEDS: SYNTHROID PO (08:39)
--- NOTE | 2024-08-05 08:58 | CONS.URO ---
Consultation
-
Date/Time Consultation Performed: 08/05/2024 0740
Performing Provider: Duran
Reason for Consultation: Left Pyelonephritis
Medical History
History of Present Illness
Admitted to [facility] 07/13 - with Left Emphysematous Pyelonephritis -- E.coli and a > 2 cm Left upper pole renal stone
s/p Left Ureteroscopy, Laser Lithotripsy, stenting 07/17/2024 -- first stage
was planned for second stage Left Ureteroscopy, Laser Lithotripsy on 08/14/2024
due to fever/chills, returned to ED
Past Medical History
Past Medical History: Other (Hyperthyroidism (Graves), E. coli Left Emphysematous Pyelonephritis, Kidney stones, ADHD, hypertension, Left Ureteral Stricture)
Past Surgical History: Other (Cholecystectomy, Left Ureteroscopy with Laser Lithotripsy in 2016, Left Ureteroscopy with Dilation of Ureteral stricture and Stenting in 2019; Thyroidectomy, breast augmentation, 'tummy tuck'; 07/17/2024 Left
Ureteroscopy, LAser Lithotripsy, Stenting')
Allergies/Home Medications
Allergies
Allergy/AdvReac Type Severity Reaction Status Date / Time
No Known Allergies Allergy Verified 09/16/20 11:02
Home Medications
�Medication �Instructions �Recorded �Confirmed �Type
levothyroxine 150 mcg tablet 150 mcg PO DAILY Thyroid 09/09/17 08/04/24 History
melatonin 3 mg tablet 3 mg PO HSPRN PRN sleep 01/08/20 08/04/24 History
bupropion HCl 150 mg 24 hr tablet, 300 mg PO DAILY Mental 07/13/24 08/04/24 History
extended release Health/Anxiety
cyclosporine 0.05 % eye drops in a 1 drp BOTH EYES Q12H Eye Condition 07/13/24 08/04/24 History
dropperette
dextroamphetamine sulfate 10 mg 10 mg PO BID Mental Health/Anxiety 07/13/24 08/04/24 History
capsule,extended release
hydrochlorothiazide 12.5 mg tablet .5 mg PO DAILY Blood Pressure 07/13/24 08/04/24 History
linaclotide 72 mcg capsule 72 mcg PO DAILYPRN PRN ibs 07/13/24 08/05/24 History
(Linzess)
metoprolol succinate 50 mg 50 mg PO DAILY Heart 07/13/24 08/04/24 History
tablet,extended release 24 hr Disease/Condition
ondansetron 8 mg disintegrating 8 mg PO DAILYPRN PRN nausea 07/13/24 08/05/24 History
tablet
zolpidem 10 mg tablet 10 mg PO HSPRN PRN sleep 07/13/24 08/04/24 History
perfluorohexyloctane (PF) 100 % 1 drp BOTH EYES TID 08/05/24 08/05/24 History
eye drops (Miebo (PF))
Physical Exam
Vital Signs
Vital Signs
Temp Pulse Resp BP Pulse Ox
99.8 F 113 31 94/57 96
08/05/24 01:06 08/05/24 08:00 08/05/24 08:00 08/05/24 08:00 08/05/24 08:00
Lab / Testing Results
Laboratory Results
08/05/24 05:42
08/05/24 05:42
Physical Exam
adult female on [facility]
Assessment / Plan
-
persistent Left Pyelonephritis -- E.coli with infected stone fragments
Plan: antibiotics, hydration; second stage Left Ureteroscopy, Laser Lithotripsy on 08/14/2024
--- NOTE | 2024-08-05 11:17 | CM ---
CM met with pt bedside
Pt admitted to from 07/13-07/17 and went home with no needs
Pt resides alone in a 2[address] with 2 PREST[place], full flight to 2nd floor
Pt is indep with her ADLs, denies use of DMEs
Denies financial insecurities
PCP- Nicolas Caldera
Rx- Franklin Barba
Discharge Disposition- anticipate, home no needs
[2024-08-05] MEDS: WELLBUTRIN XL (24 hour extended release) PO (11:39)
--- NOTE | 2024-08-05 17:00 | W.PN.HOSP.TC ---
Today's Communication/Plan
-
Assessment / Plan
Assessment / Plan
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
Scleral Anicteric
MMM
No JVD
CTABL
RRR, S1/S2
Soft, NT, ND, BS+
Warm, Dry
AAOx3
Calm
Severe Sepsis secondary to pyelonephritis with fragment of retained stones
-Left urethral stone s/p cystoscopy and stent
Await urine culture
Continue Rocephin as previous cultures pansensitive E. coli
Urology following
IV fluids
IV antibiotics
Maintain map >65
ORESTES in the setting of pyelonephritis, if starts going up then potentially has developed septic/ischemic ATN
IV fluids IV antibiotics
Avoid nephrotoxins hypotension
If not improving consult nephrology
[place] urinary output
Hypertension
Hold antihypertensives
Graves' disease s/p thyroidectomy
Continue levothyroxine
Anxiety
Continue bupropion
Anticipated Discharge: 24 - 48 hours
Subjective/Interval History
-
Date of Service: August 05, 2024
Seen and examined. No new complaints. No acute overnight events.
No back pain
Has had 2 L of fluid
Blood pressure remains in the 90s has not been started on Levophed nurse updated to start if MAP less than 65 or if blood pressure continues to decrease
Objective Data
-
Labs:
Laboratory Results
08/05/24
05:42
WBC 21.0 H
Hgb 11.0 L
Hct 32.9 L
Plt Count 225 D
Sodium 135
Potassium 3.7
Chloride 107
Carbon Dioxide 21 L
BUN 16
Creatinine 1.3 H
Glucose 85
Calcium 7.7 L D
Vital Signs:
Vital Signs
Temp Pulse Resp BP Pulse Ox
99.4 F 79 24 84/58 96
08/05/24 16:53 08/05/24 16:00 08/05/24 16:00 08/05/24 15:00 08/05/24 15:30
[2024-08-05] MEDS: NSS IV ×2 (18:37→21:39)
[2024-08-05] MEDS: TYLENOL 325 MG PO (20:25)
[2024-08-05] MEDS: DILAUDID 0.25 MG IV (22:33)
[2024-08-05] MEDS: STERILE WATER FOR INJECTION 10 ML IV (23:55)
[2024-08-05] MEDS: ROCEPHIN 1000 MG IV (23:56)
[2024-08-06] VITALS (13 sets, daily range): BP systolic 81–131; BP diastolic 56–97
--- NOTE | 2024-08-06 00:44 | PTCARENOTE ---
report received from ED RN. Pt received and made comfortable in room. CHG preformed. N/S @ 200ml/hr running per order. iv abx admin. assessment as documented. call light in reach.
[2024-08-06] MEDS: TYLENOL 650 MG PO ×3 (01:50→18:17)
[2024-08-06 04:29] LABS: Hematocrit 27.6 % (37.0-47.0); Hemoglobin 9.7 g/dL (12.0-16.0); Mean Corp Hgb Conc. 35.1 g/dL (33.0-37.0); Mean Corpuscular Hgb 31.2 pg (27.0-31.0); Mean Corpuscular Volume 88.7 fL (81.0-99.0); Mean Platelet Volume 9.1 fL (7.4-10.4); Platelet Count 206 10^3/uL (130-400); Red Blood Cell Count 3.11 10^6/uL (4.20-5.40); Red Cell Dist. Width 12.5 % (11.5-14.5); White Blood Cell Count 25.7 10^3/uL (4.8-10.8)
[2024-08-06 04:56] LABS: Blood Urea Nitrogen 12 mg/dl (7-17); Calcium 7.5 mg/dl (8.4-10.2); Carbon Dioxide 18 mmol/L (22-30); Chloride 110 mmol/L (98-107); Estimated Creatinine Clearance 76 ml/min; Glucose 105 mg/dl (70-99); Potassium 3.3 mmol/L (3.5-5.1); Sodium 135 mmol/L (135-145); eGFR > 60.00
[2024-08-06] MEDS: NSS 1000 IV (06:34)
[2024-08-06] MEDS: SYNTHROID 150 MCG PO (06:34)
[2024-08-06] MEDS: NSS IV ×2 (06:36→09:47)
--- NOTE | 2024-08-06 07:49 | W.PN.URO.CBU ---
Today's Communication / Plan
-
Plan: antibiotics, hydration; second stage Left Ureteroscopy, Laser Lithotripsy on 08/14/2024
Assessment / Plan
-
persistent Left Pyelonephritis -- E.coli with infected stone fragments
Diagnosis
-
Date of Service: August 06, 2024
-
Patient Diagnosis:
persistent Left Pyelonephritis -- E.coli with infected stone fragments
Subjective
-
feels ill
Objective
-
Vital Signs
Temp Pulse Resp BP Pulse Ox
98.2 F 66 22 108/76 96
08/06/24 07:28 08/06/24 06:30 08/06/24 06:30 08/06/24 06:00 08/06/24 06:30
Intake and Output
08/05/24 08/06/24 08/07/24
06:59 06:59 06:59
Other:
Number of approximated LARGE 1
amounts of urine
Laboratory Results
08/06/24 04:20
08/06/24 04:20
Physical Exam
-
General - well developed, well nourished, no acute distress
Chest - clear bilaterally
Abdomen - soft, non-tender, positive bowel sounds, no CVAT, no incisional pain or distention
Genitalia - normal
Rectal - normal
Skin - warm & dry with no rash
Neuro - AOx3, no motor deficits
Extremities - no clubbing, no cyanosis, no edema
Incision - clean, dry
Dressing - clean, dry, intact
[2024-08-06] MEDS: WELLBUTRIN XL (24 hour extended release) 300 MG PO (07:50)
[2024-08-06] MEDS: KCL 40 MEQ PO ×2 (09:53→13:12)
[2024-08-06] MEDS: LR 1000 IV ×3 (09:53→22:58)
--- NOTE | 2024-08-06 10:48 | PTCARENOTE ---
Patient's SpO2 87% on RA when she was sleeping. Patient placed on 2L NC and SpO2 now at 94%. Care ongoing.
--- NOTE | 2024-08-06 12:38 | PN.CDI ---
CDI
- -
CDI:
Physician Documentation Request
Admit Date: 08/04/24 23:41
Dear Doctor Flakito,
Please review the following and provide your response in the progress notes.
Clinical Indicators:
- 08/05 PN 'Severe Sepsis secondary to pyelonephritis with fragment of retained stones'
- 08/06 Urology 'persistent Left Pyelonephritis -- E.coli with infected stone fragments'
Please clarify which of the following accurately represents the acuity of the pyelonephritis:
____Acute
____Acute on Chronic
____Chronic
____Other (please specify)
Use of terms such as suspected, likely, concern for, or probable (associated with a specific diagnosis that is being evaluated, monitored, or treated as if it exists) are acceptable and can be coded in the inpatient setting, when documented at the
time of discharge.
Thank you,
Donny Viveros RN
CDI Specialist
Please use your independent medical judgment in providing your response.
[2024-08-06] MEDS: ROXICODONE 5 MG PO ×2 (12:39→22:58)
--- NOTE | 2024-08-06 17:13 | PTCARENOTE ---
Patient AOx3. NSR on monitor. VSS. Patient on RA with SpO2 greater than 92%. L uretal stent in place. Patient ambulates assist x1 to the bathroom. Pale generalized color. IVF running per order. Patient complaining of L sided flank pain. PRN pain
medication given per order. Call issa within reach, bed in lowest position, and bed of wheels locked.
--- NOTE | 2024-08-06 18:19 | PTCARENOTE ---
Patient with temp of 100.6 orally and has chills. PO tylenol given per JUN. Care ongoing.
--- NOTE | 2024-08-06 22:06 | W.PN.HOSP.TC ---
Today's Communication/Plan
-
Assessment / Plan
Assessment / Plan
NAD, diaphoretic
Scleral Anicteric
MMM
No JVD
CTABL
RRR, S1/S2
Soft, NT, ND, BS+
No cva tenderness
Warm, Dry
AAOx3
Calm
Severe Sepsis secondary to pyelonephritis with fragment of retained stones
-Left urethral stone s/p cystoscopy and stent
Await urine culture
Continue Rocephin as previous cultures pansensitive E. coli
Urology following
Oral analgesics ordered
IV fluids
IV antibiotics
Maintain map >65
ORESTES in the setting of pyelonephritis, if starts going up then potentially has developed septic/ischemic ATN
IV fluids IV antibiotics
Avoid nephrotoxins hypotension
If not improving consult nephrology
[place] urinary output
Hypertension
Hold antihypertensives
Graves' disease s/p thyroidectomy
Continue levothyroxine
Anxiety
Continue bupropion
Anticipated Discharge: > 48 hours
Subjective/Interval History
-
Date of Service: August 06, 2024
seen and examined. experiencing some flank pain - left sided
no new complaints. no acute overnight events
Objective Data
-
Vital Signs:
Vital Signs
Temp Pulse Resp BP Pulse Ox
100 F 109 20 111/86 99
08/06/24 19:00 08/06/24 18:13 08/06/24 18:13 08/06/24 18:13 08/06/24 18:00
I&O
08/05/24 08/06/24 08/07/24
06:59 06:59 06:59
Intake Total 2960 / 2960
Balance 2960 / 2960
[2024-08-06] MEDS: ZOFRAN 4 MG IV (22:59)
[2024-08-06] MEDS: ROCEPHIN 1000 MG IV (22:59)
[2024-08-06] MEDS: STERILE WATER FOR INJECTION 10 ML IV (22:59)
[2024-08-06] MEDS: FLUSH (NSS) 1 FLUSH IV (23:00)
[2024-08-07] VITALS (8 sets, daily range): BP systolic 113–149; BP diastolic 68–106
[2024-08-07] MEDS: FLUSH (NSS) 1 FLUSH IV ×3 (00:40→00:45)
[2024-08-07] MEDS: SYNTHROID 150 MCG PO (03:05)
[2024-08-07] MEDS: TYLENOL 650 MG PO ×2 (03:05→14:05)
[2024-08-07 03:22] LABS: Hematocrit 25.4 % (37.0-47.0); Hemoglobin 8.6 g/dL (12.0-16.0); Mean Corp Hgb Conc. 33.9 g/dL (33.0-37.0); Mean Corpuscular Volume 88.5 fL (81.0-99.0); Mean Platelet Volume 9.4 fL (7.4-10.4); Platelet Count 193 10^3/uL (130-400); Red Blood Cell Count 2.87 10^6/uL (4.20-5.40); Red Cell Dist. Width 12.4 % (11.5-14.5); White Blood Cell Count 16.3 10^3/uL (4.8-10.8)
--- NOTE | 2024-08-07 04:17 | PTCARENOTE ---
Patient aao x3 since start of shift. Patient had temp at start of shift which resolved with prn tylenol. Around 0300 patients temp 101.2, prn tylenol administered at that time with positive results. Patient noted to be tachycardic throughout the
night, into 100's and as high as 130's when febrile. Lungs cta throughout, 99% on ra. Patient with pain to left flank overnight, prn roxicodone administered per order with positive results. Left ac IV infiltrated, IV notified and removed. Right
midline placed at that time. Will continue to monitor patient closely.
[2024-08-07] MEDS: LR 1000 IV ×3 (08:23→19:52)
[2024-08-07] MEDS: WELLBUTRIN XL (24 hour extended release) 300 MG PO (08:24)
[2024-08-07 09:29] LABS: Hematocrit 26.3 % (37.0-47.0); Hemoglobin 8.9 g/dL (12.0-16.0); Mean Corp Hgb Conc. 33.8 g/dL (33.0-37.0); Mean Corpuscular Hgb 29.9 pg (27.0-31.0); Mean Corpuscular Volume 88.3 fL (81.0-99.0); Mean Platelet Volume 9.5 fL (7.4-10.4); Platelet Count 200 10^3/uL (130-400); Red Blood Cell Count 2.98 10^6/uL (4.20-5.40); Red Cell Dist. Width 12.4 % (11.5-14.5); White Blood Cell Count 13.9 10^3/uL (4.8-10.8)
[2024-08-07 10:46] LABS: Blood Urea Nitrogen 6 mg/dl (7-17); Calcium 7.9 mg/dl (8.4-10.2); Carbon Dioxide 22 mmol/L (22-30); Chloride 109 mmol/L (98-107); Estimated Creatinine Clearance 97 ml/min; Glucose 97 mg/dl (70-99); Potassium 3.7 mmol/L (3.5-5.1); Sodium 137 mmol/L (135-145); eGFR > 60.00
--- NOTE | 2024-08-07 13:24 | W.PN.HOSP.TC ---
Today's Communication/Plan
-
Assessment / Plan
Assessment / Plan
NAD, diaphoretic
Scleral Anicteric
MMM
No JVD
CTABL
RRR, S1/S2
Soft, NT, ND, BS+
No cva tenderness
Warm, Dry
AAOx3
Calm
Severe Sepsis secondary to acute pyelonephritis with fragment of retained stones
-Left urethral stone s/p cystoscopy and stent
Urine culture pansensitive E. coli
Continue Rocephin
Urology following
Oral analgesics ordered
IV fluids
Maintain map >65
Still having fevers. And pyelonephritis can have fevers up to fifth to the seventh day after initiating antibiotic
ORESTES in the setting of pyelonephritis
Creatinine continues to improve
Start to encourage oral intake
Hypokalemia
Replete
Hypocalcemia
No symptoms no indication for lesion/supplementation at this time
Hypertension
Hold antihypertensives
Graves' disease s/p thyroidectomy
Continue levothyroxine
Anxiety
Continue bupropion
Downgrade to telemetry
Anticipated Discharge: 24 - 48 hours
Subjective/Interval History
-
Date of Service: August 07, 2024
Seen and examined. No new complaints. No acute overnight events.
States that she is feeling better oxycodone is helping with the pain. More comfortable today. No urinary burning/frequency
Remains to have intermittent episodes of fever which are expected
Objective Data
-
Labs:
Laboratory Results
08/07/24 08/07/24
03:15 09:19
WBC 16.3 H 13.9 H
Hgb 8.6 L 8.9 L
Hct 25.4 L 26.3 L
Plt Count 193 200
Sodium 137
Potassium 3.7
Chloride 109 H
Carbon Dioxide 22
BUN 6 L
Creatinine 0.7
Glucose 97
Calcium 7.9 L
Vital Signs:
Vital Signs
Temp Pulse Resp BP Pulse Ox
98.7 F 78 17 116/68 99
08/07/24 11:50 08/07/24 08:00 08/07/24 08:00 08/07/24 08:00 08/07/24 04:09
I&O
08/06/24 08/07/24 08/08/24
06:59 06:59 06:59
Intake Total 2960 / 2960
Balance 2960 / 2960
--- NOTE | 2024-08-07 16:24 | PTCARENOTE ---
Afebrile, however face flushed, skin hot / dry, and gen. lethargy. VSS- downgraded to tele. Ambulating into bathroom- urine is turbid yellow. Adequate amts. IVF infusing. Appetite poor. Pain Left Flank 3/10- resolved with PO Tylenol x1 this
shift.
--- NOTE | 2024-08-07 20:00 | PTCARENOTE ---
Report call by previous RN. RN called 3w to confirm room and rn ready for transfer. Patient updated and transferred at this time.
[2024-08-07] MEDS: ROXICODONE 5 MG PO (21:48)
[2024-08-08] MEDS: ROCEPHIN 1000 MG IV (00:36)
[2024-08-08] MEDS: FLUSH (NSS) 1 FLUSH IV ×2 (00:36)
[2024-08-08] MEDS: STERILE WATER FOR INJECTION 10 ML IV (00:37)
[2024-08-08] MEDS: MELATONIN 3 MG PO (00:43)
[2024-08-08] MEDS: LR 1000 IV ×2 (02:01→08:52)
[2024-08-08 03:30] VITALS: BP 145/78
[2024-08-08] MEDS: TYLENOL 650 MG PO (04:20)
[2024-08-08] MEDS: SYNTHROID 150 MCG PO (04:21)
[2024-08-08 05:39] LABS: Hematocrit 23.7 % (37.0-47.0); Hemoglobin 8.2 g/dL (12.0-16.0); Mean Corp Hgb Conc. 34.6 g/dL (33.0-37.0); Mean Corpuscular Hgb 30.1 pg (27.0-31.0); Mean Corpuscular Volume 87.1 fL (81.0-99.0); Mean Platelet Volume 9.3 fL (7.4-10.4); Platelet Count 182 10^3/uL (130-400); Red Blood Cell Count 2.72 10^6/uL (4.20-5.40); Red Cell Dist. Width 12.6 % (11.5-14.5); White Blood Cell Count 11.6 10^3/uL (4.8-10.8)
[2024-08-08 06:03] LABS: Blood Urea Nitrogen 7 mg/dl (7-17); Calcium 7.9 mg/dl (8.4-10.2); Carbon Dioxide 21 mmol/L (22-30); Chloride 107 mmol/L (98-107); Estimated Creatinine Clearance 85 ml/min; Glucose 125 mg/dl (70-99); Potassium 3.2 mmol/L (3.5-5.1); Sodium 136 mmol/L (135-145); eGFR > 60.00
[2024-08-08 07:41] VITALS: BP 133/77
[2024-08-08] MEDS: WELLBUTRIN XL (24 hour extended release) 300 MG PO (08:52)
--- NOTE | 2024-08-08 10:23 | CM ---
Chart reviewed. Patient stable for d/c today
No CM needs at this time
Plan: Home, no needs
[2024-08-08 11:29] VITALS: BP 140/91
--- NOTE | 2024-08-08 11:32 | VATNOTE ---
Pt is being D/C'd. Midline D/C'd per protocol w/ TCL retrieved 13cm. Pressure dressing applied per protocol.
--- NOTE | 2024-08-08 12:08 | W.PN.HOSP.TC ---
Today's Communication/Plan
-
dc home after K repletion
More than 30 minutes spent in discharge including
Final examination of the patient
Summarizing hospital stay
Instructions for continuing care to all relevant caregivers
Preparation of discharge records, prescriptions, and referral forms
Total time spent (in minutes): 36mins
Assessment / Plan
Assessment / Plan
NAD, diaphoretic
Scleral Anicteric
MMM
No JVD
CTABL
RRR, S1/S2
Soft, NT, ND, BS+
No cva tenderness
Warm, Dry
AAOx3
Calm
Severe Sepsis secondary to acute pyelonephritis with fragment of retained stones
-Left urethral stone s/p cystoscopy and stent
Urine culture pansensitive E. coli
transition Rocephin to cefdinir to ocmplete 10day course
Urology following and will need outpatient definitive stone treatment which is planned for 08/14
Oral analgesics ordered
IV fluids
Maintain map >65
Still having fevers. And pyelonephritis can have fevers up to fifth to the seventh day after initiating antibiotic
ORESTES in the setting of pyelonephritis
Creatinine continues to improve
Start to encourage oral intake
Hypokalemia
Replete witgh 40po and 40k rider
Hypocalcemia
No symptoms no indication for lesion/supplementation at this time
Hypertension
Hold antihypertensives
Graves' disease s/p thyroidectomy
Continue levothyroxine
Anxiety
Continue bupropion
Downgrade to telemetry
Anticipated Discharge: Today
Subjective/Interval History
-
Date of Service: August 08, 2024
Seen examined. No new complaints. No acute overnight events.
feeling much better
no pain, no dysuria
Objective Data
-
Labs:
Laboratory Results
08/08/24
05:21
WBC 11.6 H
Hgb 8.2 L
Hct 23.7 L
Plt Count 182
Sodium 136
Potassium 3.2 L
Chloride 107
Carbon Dioxide 21 L
BUN 7
Creatinine 0.8
Glucose 125 H
Calcium 7.9 L
Vital Signs:
Vital Signs
Temp Pulse Resp BP Pulse Ox
98.6 F 86 16 140/91 100
08/08/24 11:29 08/08/24 11:29 08/08/24 11:29 08/08/24 11:29 08/08/24 11:29
I&O
08/07/24 08/08/24 08/09/24
06:59 06:59 06:59
Intake Total 2960 / 2960 630 / 630 600 / 600
Output Total 2049
Balance 2960 / 2960 -1420 / -1420 600 / 600
--- NOTE | 2024-08-08 12:14 | W.DCSUMMARY ---
Discharge Summary
Discharge Data
Date of Admission: 08/04/24
Date of Discharge: 08/08/24
-
Pending Results: No
Hospital Course
49 y/o female past medical history of hypertension, anxiety, hypothyroidism and recent hospitalization for pyelonephritis secondary to infected non-obstructing kidney stone
Presented for recurrent fevers and left-sided flank pain. Was recently hospitalized for a left ureteral stone and pyelonephritis. Was started on Rocephin evaluated by urology IV hydration analgesics and antibiotics with planed second stage left
uteroscopy and laser lithotripsy on 08/14/2024. Urine culture again grew pansensitive E. coli. Will discharge home with cefdinir 300 mg twice a day for 10 days. Blood cultures no growth to date. Outpatient urology follow-up. If symptomatology
returns or worsens then return to the hospital.
CTAP
IMPRESSION:
Left ureteral stent is present.
Fragmentation of upper pole calculus since previous exam of July 13, 2024, compatible with interval lithotripsy.
There is present within the upper pole collecting system on the left, and raises the possibility of emphysematous pyelitis.
Small amount of air within the anterior bladder, which could be from recent instrumentation versus gas forming infection.
Discharge Plan
-
Patient Disposition: Home (Routine Discharge)
Discharge Diagnosis/Procedures: Pyelonephritis
Diet: As tolerated
Activity: As tolerated
Activity Restrictions/Additional Instructions:
Presented for recurrent fevers and left-sided flank pain. Was recently hospitalized for a left ureteral stone and pyelonephritis. Was started on Rocephin evaluated by urology IV hydration analgesics and antibiotics with planed second stage left
uteroscopy and laser lithotripsy on 08/14/2024. Urine culture again grew pansensitive E. coli. Will discharge home with cefdinir 300 mg twice a day for 10 days. Blood cultures no growth to date. Outpatient urology follow-up. If symptomatology
returns or worsens then return to the hospital.
CTAP
IMPRESSION:
Left ureteral stent is present.
Fragmentation of upper pole calculus since previous exam of July 13, 2024, compatible with interval lithotripsy.
There is present within the upper pole collecting system on the left, and raises the possibility of emphysematous pyelitis.
Small amount of air within the anterior bladder, which could be from recent instrumentation versus gas forming infection.
Referrals:
Alejandro Garzon MD [Active] - in two to three weeks
Nicolas Caldera MD [Family Provider] -
Prescriptions:
New
oxycodone 5 mg Tablet
5 mg PO Q4HPRN PRN (Reason: moderate pain) 3 Days Qty: 12 0RF
cefdinir 300 mg capsule
300 mg PO Q12H 10 Days Qty: 20 0RF
Continued
levothyroxine 150 MCG tablet
150 mcg PO DAILY
melatonin 3 MG tablet
3 mg PO HSPRN PRN (Reason: sleep)
metoprolol succinate 50 mg Tablet Extended Release 24 Hr
50 mg PO DAILY
ondansetron 8 mg Tablet,Disintegrating
8 mg PO DAILYPRN PRN (Reason: nausea)
dextroamphetamine sulfate 10 mg Capsule, Extended Release
10 mg PO BID
zolpidem 10 mg Tablet
10 mg PO HSPRN PRN (Reason: sleep)
cyclosporine 0.05 % Dropperette
1 drp BOTH EYES Q12H
bupropion HCl 150 mg Tablet Extended Release 24 Hr
300 mg PO DAILY
hydrochlorothiazide 12.5 mg Tablet
12.5 mg PO DAILY
Linzess 72 mcg Capsule
72 mcg PO DAILYPRN PRN (Reason: ibs)
Miebo (PF) 100 % Drops
1 drp BOTH EYES TID
No Action
clonazepam 1 mg tablet
1 mg PO PRN PRN (Reason: anxiety)
etonogestrel-ethinyl estradiol [NuvaRing] 0.12-0.015 mg/24 hr Ring
1 vag ring VAGINAL Q4W
Hrt Therapy
1 unit .2 TIMES/WEEK
Discharge Orders:
Discharge Patient (As Directed); Ordered 08/08/24
Ordered By: Anders Fraga
Discharge Date and Time
Print Language: GREENLANDIC
== END 2024-08-08 12:24 | disposition home or self-care (01) | DRG 872 ==
LOC: 3 WEST ACU 23:41
PROVIDERS: Emergency Medicine; Nurse Practitioner Gerontology; Physician Assistant Medical; ADMITTING PHYSICIAN Hospitalist; ATTENDING PHYSICIAN Hospitalist; CONSULT PHYSICIAN Specialist; EMERGENCY PHYSICIAN Emergency Medicine; FAMILY PHYSICIAN Family Medicine
DX: A41.9 Sepsis, unspecified organism (principal); N11.1 Chronic obstructive pyelonephritis; N17.9 Acute kidney failure, unspecified; N20.2 Calculus of kidney with calculus of ureter; R65.20 Severe sepsis without septic shock; I10 Essential (primary) hypertension; F41.9 Anxiety disorder, unspecified; G47.00 Insomnia, unspecified; E05.00 Thyrotoxicosis with diffuse goiter without thyrotoxic crisis or storm; E89.0 Postprocedural hypothyroidism; I95.9 Hypotension, unspecified; E87.6 Hypokalemia; E83.51 Hypocalcemia
CPT/HCPCS: 74176; 80048; 80053; 81003; 81015; 83605; 84703; 85025; 85027; 87040; 87077; 87086; 87186; 93005; 96361; 96374; 99285

== ENCOUNTER 2024-08-14 06:31 | Day surgery (SDC) | payer OTHER, SELFPAY ==
--- NOTE | 2024-08-08 15:01 | PTCARENOTE ---
Hgb 8.2, K+3.2 collected 08/08/24, reviewed by Dr Billings, no further intervention requested.
Angela at Dr Garzon's office notified of above labs.
[2024-08-14] VITALS (8 sets, daily range): BP systolic 122–155; BP diastolic 65–99; BMI 26.2
[2024-08-14] MEDS: TRANSDERM-SCOP 1 PATCH TRANSDERM (11:53)
[2024-08-14] MEDS: EMEND 40 MG PO (12:23)
[2024-08-14] MEDS: Pyridium 200 MG PO (15:30)
[2024-08-14] MEDS: TYLENOL 650 MG PO (16:17)
== END 2024-08-14 16:30 | disposition home or self-care (01) ==
LOC: SDS 06:31
PROVIDERS: ATTENDING PHYSICIAN Specialist; FAMILY PHYSICIAN Family Medicine
DX: N20.0 Calculus of kidney (principal); Z87.442 Personal history of urinary calculi
CPT/HCPCS: 52356; 74018; 76000; C1894; C2617; J1335